=== PATIENT | male | born 1970 | race Caucasian/White ===

== ENCOUNTER → 2019-06-28 10:47 | Outpatient (CLI) | payer OTHER, SELFPAY ==
[2019-06-28 10:26] VITALS: BMI 28.2
--- NOTE | 2019-06-28 10:48 | RAD_ITS ---
STUDY: X-RAY CHEST REASON FOR EXAM: Male, 48 years old. COUGH, CONGESTION X ONE MONTH TECHNIQUE: PA and lateral views of the chest. COMPARISON: None. FINDINGS: The lungs are clear and expanded. There is no demonstrated pleural abnormality. Normal size heart. Normal mediastinum and cem. Normal visualized pulmonary arteries. Normal visualized aortic arch and descending thoracic aorta. Normal visualized thoracic spine. Normal visualized ribs, clavicles, and shoulders. There is no demonstrated abnormality of the visualized soft tissue structures of the upper abdomen. RAD/Chest PA and Lateral IMPRESSION: Normal x-ray examination of the chest. Electronically Signed: Eric Peñaloza MD at 11:11 EST Tel , Service support ,
== END ==
PROVIDERS: Family Provider Family Medicine; PCP Family Medicine; Referring Provider Physician Assistant; Visit Provider Physician Assistant
DX: R05 Cough (principal)
CPT/HCPCS: 71046

== ENCOUNTER → 2019-08-08 10:38 | Outpatient (CLI) | payer OTHER, SELFPAY ==
[2019-06-28 13:04] VITALS: BMI 28.2
[2019-08-13 11:50] LABS: Cat Hair / Dander,Stand 5.29 kU/L (Class IV)
== END ==
PROVIDERS: PCP Family Medicine; Referring Provider Pediatrics; Visit Provider Pediatrics
DX: L50.9 Urticaria, unspecified (principal)
CPT/HCPCS: 36415; 86003

== ENCOUNTER 2022-06-14 22:14 | Observation (INO) | payer OTHER, SELFPAY ==
[2022-06-14 22:16] VITALS: BP 116/112; PULSE 88; RESP 16; TEMP 36.8; O2SAT 98; BMI 25.7
[2022-06-14 22:19] VITALS: BP 167/112; PULSE 88; RESP 16; TEMP 36.8; O2SAT 98
--- NOTE | 2022-06-14 22:48 | CT_ITS ---
EXAM: CT brain without contrast HISTORY: confusion TECHNIQUE: No intravenous contrast. A radiation dose optimization technique was used for this scan. COMPARISON: None. LIMITATIONS: None. BRAIN: Normal ellsworth/white matter differentiation. VENTRICLES: No hydrocephalus. EXTRA-AXIAL SPACES: No acute hemorrhage. CALVARIUM/SKULL BASE: No acute fracture. FACE/SINUSES: Mucosal thickening and possible fluid in the maxillary and ethmoid sinuses bilaterally. SOFT TISSUES: Normal. OTHER: None. CONCLUSION: No acute intracranial abnormality. Paranasal sinus disease. Electronically Signed: Kye Fontanez MD at 23:[address] EST , CT/Brain/Head without Contrast IMPRESSION: undefined
--- NOTE | 2022-06-14 22:48 | EKG12_ITS ---
Test Reason : CONFUSION Blood Pressure : / mmHG Vent. Rate : 082 BPM Atrial Rate : 082 BPM P-R Int : 196 ms QRS Dur : 100 ms QT Int : 382 ms P-R-T Axes : 046 -14 035 degrees QTc Int : 446 ms Normal sinus rhythm Septal infarct , age undetermined Abnormal ECG Confirmed by DEMOND MIXON, ANNIE ([id number]), communications editor JUSTIN FLORES ([id number]) on 06/16/2022 11:54:35 AM Referred By: Confirmed By:ANNIE LAGOS MD
--- NOTE | 2022-06-14 22:49 | EDS_ITS ---
HPI History of Present Illness Chief Complaint: Confusion Informant: patient and family Onset/Context/Timing Onset: Today (noticed) Context: - (upon waking up from sleeping this evening, sev hrs ago) Timing: Continuous Quality: disoriented Current Severity: Mild Maximum Severity: Severe Worsened by: nothing Relieved by: nothing in particular Narrative Narrative: Patient has been ill for the past week or 8/9 days, he has had cough, malaise, subjective fevers and chills, sore throat, myalgias. He tested positive for COVID 3-4 days ago. He has been going to work all week but just feeling tired. He has been sleeping all weekend, today is Tuesday. came home and woke him up to try to encourage him to eat and drink since he has been sleeping all day and he was confused upon waking up. The last time she found him normal was about 3 days ago because he has been sleeping that much over the weekend. He states he has had a headache that has been fairly severe for the last week, right now it is occipital. states that he did not know her name, the year, other basic questions that he should know. He seems a little better now but still not normal and he admits that he feels a little disoriented. He did have some vaccination injections against COVID in the past. 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 He takes no antiplatelet or anticoagulant medications ever since then. The surgery was not recent. He takes medication for high blood pressure, hyperlipidemia, seasonal allergies, gout. The last time he had a prescription for analgesics was 2 and half years ago for gout. He does not take them although he the brought a bottle of Percocet #6 tablets. There are still some there and it was prescribed early 2019. also notes that prior to getting ill with the current illness, about 2 weeks or more ago, he fell out of bed, and was acting unusual, but then started acting normal after that until he was sick. [facility] Medical History (Updated 06/14/22 @ 23:[address] Jair Fuller MD) Gout Hay fever Hyperlipidemia Hypertension Patent foramen ovale Home Medications amlodipine 2.5 mg-atorvastatin 10 mg tablet 1 tab PO DAILY 06/18/18 [History Last Taken Unknown] hydrochlorothiazide 12.5 mg capsule 12.5 mg PO DAILY 06/18/18 [History Last Taken Unknown] simvastatin 5 mg tablet 20 mg PO QHS 06/18/18 [History Last Taken Unknown] albuterol sulfate 90 mcg/actuation aerosol inhaler 1 puff inhalation Q6H PRN shortness of breath or wheezing #6.7 grams 06/28/19 [Rx Last Taken Unknown] allopurinol 100 mg tablet 100 mg PO DAILY 06/14/22 [History Last Taken Unknown] lansoprazole 15 mg capsule,delayed release 15 mg PO DAILY 06/14/22 [History Last Taken Unknown] montelukast 10 mg tablet 10 mg PO QHS 06/14/22 [History Last Taken Unknown] oxycodone-acetaminophen 5 mg-325 mg tablet (Percocet) 1 tab PO Q6H PRN Pain 06/14/22 [History Last Taken Unknown] Allergy/AdvReac Type Severity Reaction Status Date / Time lisinopril Allergy Mild LIGHT Verified 06/23/21 07:06 HEADED, FLUSHING, HIVES Family History Other Cancer Heart disease Hypertension Surgical History History of sinus surgery PATENT FORAMEN OVALE CLOSURE WITH PATCH Social History Smoking Status: Never smoker alcohol intake: current ROS ROS ED Constitutional Constitutional ED: Reports body ache(s), chills, fatigue, fever(s), malaise and subjective Eyes Eyes: Denies blurry vision, change in vision or diplopia ENT ENT ED: Reports sore throat; Denies ear pain or rhinorrhea Cardiovascular Cardiovascular: Denies chest pain or palpitations Respiratory/Chest Respiratory/Chest: Reports cough; Denies dyspnea Gastrointestinal Gastrointestinal: Denies abdominal pain, diarrhea, nausea or vomiting Genitourinary Genitourinary ED: Denies dysuria or hematuria Musculoskeletal Musculoskeletal: Denies back pain or neck pain Integumentary Denies abscess or rash Neurologic Neurologic: Reports as per HPI, confusion and headache(s); Denies abnormal gait, paresthesias or weakness Psychiatric Psychiatric: Denies anxiety or suicidal thoughts Hematologic/Lymphatic Hematologic/Lymphatic: Denies easy bleeding or easy bruising EXAM Physical Exam Const Vital Signs: 06/14/22 22:16 06/14/22 22:19 Temperature 98.2 F 98.2 F Temperature Source Temporal Temporal Pulse Rate 88 88 Respiratory Rate 16 16 Blood Pressure 116/112 H 167/112 H Blood Pressure Mean 113 130 Pulse Ox 98 98 Oxygen Delivery Method Room Air Room Air Positive well nourished and well developed General Appearance ED: well developed and NAD HEENT Reports moist mucous membranes normocephalic and atraumatic Mouth ED: Yes oral and palatal mucosa normal Mouth: oral and palatal mucosa normal Throat: posterior oropharynx normal Eyes PERRL and EOMs intact bilaterally Neck full ROM, no lymphadenopathy and supple Resp normal respiratory effort and clear to auscultation bilaterally Cardio regular rate, regular rhythm and no murmurs GI non-tender and non-distended Auscultation: normoactive bowel sounds Palpation: soft Back/Spine no CVA tenderness General Back: other FROM Extremity normal to inspection General Extremety ED: Negative for edema, pulses abnormal or tenderness General Extremity: Negative for edema or pulses abnormal Neuro CN's II-XII intact bilaterally and no sensory deficits noted Neuro Narrative: Orientation slightly impaired; thinks it is 2022 although it is June 2022; is oriented to person, building, city, state, and the president including the fact that I voted for him. states this is drastically improved compared with earlier at home. Normal jygppf-[id number] and [id number] bilaterally. Negative Romberg. Normal gait. 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 EKG was normal, CT of the head is negative for anything acute, and his labs significant only for mild hypokalemia. In the meantime while working him up, he was given IV fluids. He has a history of a PFO that was repaired, he is not on any antiplatelet or anticoagulants. No stroke team was called nor did I perform a CTA since it would not make a difference tonight since he was last seen well 3 days ago. This is not typical COVID-19 pathology, and I do not suspect that the hypokalemia explains all of this. states he was slurring his speech when he first woke up and much different than he has now, but he is still not back to normal. I think patient would benefit from further work-up including MRI of the brain in order to rule out ischemic events given his history, and given the fact that is not available emergently at this time plan is for admission to inpatient observation. Lab Data Attestation: I reviewed the patient's lab results. Labs: Laboratory Results - last 24 hr 06/14/22 06/14/22 06/14/22 22:54 22:54 22:59 WBC 6.8 RBC 4.67 Hgb 14.2 Hct 41.7 MCV 89.3 MCH 30.4 MCHC 34.1 RDW Std Deviation 42.7 RDW Coeff of Jean 13.1 Plt Count 282 MPV 10.5 Immature Gran % (Auto) 1.300 H Neut % (Auto) 54.9 Lymph % (Auto) 32.6 [place] % (Auto) 9.7 Eos % (Auto) 0.9 Baso % (Auto) 0.6 Absolute Neuts (auto) 3.7 Absolute Lymphs (auto) 2.21 Nucleated RBC % 0 Sodium 143 Potassium 3.2 L Chloride 109 H Carbon Dioxide 28.0 Anion Gap 6 BUN 13 Creatinine 0.73 Estim Creat Clear Calc 138.34 Est GFR (MDRD) Af Amer 146 Est GFR (MDRD) Non-Af 121 BUN/Creatinine Ratio 17.7 Glucose 119 H Calcium 8.3 L Total Bilirubin 0.30 AST 24 ALT 31 Alkaline Phosphatase 110 Troponin I High Sens 6 Total Protein 7.6 Albumin 3.6 Globulin 4.0 Albumin/Globulin Ratio 0.9 POC Glucose 108 H Radiography Chest X-Ray - ED: 1 View, Read by ED Physician and No Acute Disease Diagnostic Testing: Clinical Impression(s) from Imaging Studies Brain CT 06/14/22 22:48 IMPRESSION: undefined Rhythm Strip Rhythm Strip: Sinus Rhythm Rate: 80 Ectopy: None EKG Initial EKG: Attestation: I personally reviewed and interpreted this EKG as follows: Interpretation: Sinus Rhythm and No Acute Injury Pattern Discharge Plan Triage Chief Complaint: Confusion ED Provider: Jair Fuller Dx/Rx/DC Orders Clinical Impression: Encephalopathy acute, COVID-19, Hypokalemia Prescriptions: No Action simvastatin 5 mg tablet 20 mg PO QHS hydrochlorothiazide 12.5 mg capsule 12.5 mg PO DAILY amlodipine 2.5 mg-atorvastatin 10 mg tablet 5 mg tablet 1 tab PO DAILY albuterol sulfate 90 mcg/actuation HFA aerosol inhaler 1 puff INHALATION Q6H PRN (Reason: shortness of breath or wheezing) Qty: 6.7 0RF allopurinol 100 mg tablet 100 mg PO DAILY oxycodone-acetaminophen [Percocet] 5-325 mg Tablet 1 tab PO Q6H PRN (Reason: Pain) lansoprazole 15 mg Capsule,Delayed Release(Dr/Ec) 15 mg PO DAILY montelukast 10 mg tablet 10 mg PO QHS Label Comments: TAKE 1 TABLET BY MOUTH ATTBEDTIME Primary Care Provider: Salazar Belcher Referrals: Salazar Belcher MD [Primary Care Provider] - Disposition Disposition: Acute Care Hospital
[2022-06-14] MEDS: 0.9% Normal Saline 1,000 ML 999 ML IV (22:59)
[2022-06-14 23:01] LABS: Absolute Lymphocyte Count 2.21 X10^3/uL (0.83-4.51); Absolute Neutrophil Count 3.7 X10^3/uL (2.0-7.7); Basophil# 0.04 X10^3/uL; Basophil% 0.6 % (0-1); Eosinophil# 0.06 X10^3/uL; Eosinophils% 0.9 % (0-5); Hematocrit 41.7 % (40-54); Hemoglobin 14.2 g/dL (13.0-16.5); Lymphocyte # 2.21 X10^3/ul (0.83-4.51); Lymphocyte % 32.6 % (19-41); Mean Corp Hgb Conc 34.1 g/dL (32-36); Mean Corpuscular Hgb 30.4 pg (27.0-32.0); Mean Corpuscular Volume 89.3 fL (80-94); Mean Platelet Vol. 10.5 fl (6.2-12.0); Monocyte# 0.66 X10^3/uL; Monocyte% 9.7 % (0-10); NRBC Flagged by Analyzer 0 % (0-5); Neutrophil # 3.71 X10^3/uL (2.7-7.7); Neutrophil % 54.9 % (47-70); Platelet Count 282 K/mm3 (150-450); RBC Distribution Width CV 13.1 % (11.6-14.6); RBC Distribution Width SD 42.7 fl (35.1-43.9); Red Blood Count 4.67 M/mm3 (4.6-6.2); White Blood Count 6.8 K/mm3 (4.4-11.0)
--- NOTE | 2022-06-14 23:13 | RAD_ITS ---
INDICATION: confusion EXAMINATION: Frontal view of the chest COMPARISON: Chest x-ray June 28, 2019. FINDINGS: Frontal view of the chest was obtained. The cardiac silhouette is not enlarged. No confluent airspace disease. No pneumothorax. RAD/Chest 1 View (Portable) IMPRESSION: No acute pulmonary disease. Electronically Signed: Kye Fontanez MD at 0:00 EST ,
[2022-06-14 23:17] LABS: ALB/GLOB Ratio 0.9 RATIO (0.9-2.4); AST(SGOT) 24 U/L (15-37); Alanine Aminotransfer ALT/SGPT 31 U/L (16-61); Albumin, Serum 3.6 g/dL (3.2-5.0); Alkaline Phosphatase 110 U/L (45-117); Anion Gap 6 (5-15); BUN 13 mg/dL (7-18); BUN/Creat Ratio 17.7 RATIO (10-20); Calcium,Total 8.3 mg/dL (8.5-10.1); Chloride 109 mmol/L (98-107); Creatinine, Serum 0.73 mg/dL (0.70-1.30); EST Glomerular Filtration Rate 121 mL/min (>60); Est Glom Filt Rate - Afr Amer 146 mL/min (>60); Estimated Creatinine Clearance 138.34 ml/min; Glucose 119 mg/dL (74-106); Potassium 3.2 mmol/L (3.5-5.1); Protein, Total 7.6 g/dL (6.4-8.2); Sodium Level 143 mmol/L (136-145); Troponin-I HS 6 pg/mL (3.0-78.0)
[2022-06-14 23:21] LABS: Bedside Glucose 108 mg/dL (74-106)
[2022-06-15] VITALS (19 sets, daily range): BP systolic 129–161; BP diastolic 84–111; PULSE 64–99; RESP 12–18; TEMP 36.4–37; O2SAT 95–100; BMI 25.1
[2022-06-15 00:06] LABS: Bacteria 0 SEEN /hpf (None Seen); Mucous, Urine 0 SEEN /hpf (<or=2+); Red Blood Cells-Urine 0 SEEN /hpf (0-5); Squamous Epithelial Cells - UA 0 SEEN /hpf (0-5); White Blood Cells 0 SEEN /hpf (0-5)
[2022-06-15] MEDS: Potassium Chloride 10mEq/100mL 10 MEQ/100 ML IV.SOLN. 100 MEQ IV BOLUS (00:06)
[2022-06-15 00:07] LABS: Color, Urine Straw (Yellow); Glucose, Dipstick Normal (Normal); Ketone-Dipstick Negative (Negative); Leukocyte Esterase-Dipstick Negative /ul (Negative); Nitrite-Dipstick Negative (Negative); Occult Blood-Urine Negative /ul (Negative); Protein-Dipstick Negative (Negative); Urine Bilirubin Dipstick Negative (Negative); Urine Clarity Clear (Clear); Urine Urobilinogen Normal (Normal)
--- NOTE | 2022-06-15 02:47 | HP.PCM_ITS ---
HPI - General General Date of Admission: 06/15/22 Date of Service: 06/15/22 Chief Complaint: Mental status change HPI Narrative INDRA TADEO, is a 51 M who presents to the emergency room with chief complaint of mental status change. Patient has significant past medical history of COVID 19 virus diagnosed approximately 4 days ago by testing however has had symptoms for approximately 6 days. Patient has spent the weekend essentially sleeping with a complaint of headache mostly in the occipital area of his head. He admits that today he did not take his blood pressure or routine medications. Approximately 9 PM this evening his woke him up and he was unable to identify what year it was saying it was 2022, he looked at his watch which said 9:00 however he told his it was 7:00 and he was quite agitated. He remembers the nurse asking him his Social Security number when he arrived here and birthdate but was unable to get the words out to answer her correctly. He was quite frustrated by this. By the time of my evaluation this mental confusion had cleared up and he was able to answer my questions clearly. He sti ll maintains a headache but his blood pressure is improved from his initial blood pressure 160/100 upon arrival to 140/80. CT scan head is unremarkable for acute changes and blood work is unremarkable as well. Patient will be admitted for observation and an MRI and MRA of brain and cervical spine will be done in the a.m. [facility] Medical History (Updated 06/14/22 @ 23:[address] Jair Fuller MD) Gout Hay fever Hyperlipidemia Hypertension Patent foramen ovale Home Medications amlodipine 2.5 mg-atorvastatin 10 mg tablet 1 tab PO DAILY 06/18/18 [History Last Taken Unknown] hydrochlorothiazide 12.5 mg capsule 12.5 mg PO DAILY 06/18/18 [History Last Taken Unknown] simvastatin 5 mg tablet 20 mg PO QHS 06/18/18 [History Last Taken Unknown] albuterol sulfate 90 mcg/actuation aerosol inhaler 1 puff inhalation Q6H PRN shortness of breath or wheezing #6.7 grams 06/28/19 [Rx Last Taken Unknown] allopurinol 100 mg tablet 100 mg PO DAILY 06/14/22 [History Last Taken Unknown] lansoprazole 15 mg capsule,delayed release 15 mg PO DAILY 06/14/22 [History Last Taken Unknown] montelukast 10 mg tablet 10 mg PO QHS 06/14/22 [History Last Taken Unknown] oxycodone-acetaminophen 5 mg-325 mg tablet (Percocet) 1 tab PO Q6H PRN Pain 06/14/22 [History Last Taken Unknown] Allergy/AdvReac Type Severity Reaction Status Date / Time lisinopril Allergy Mild LIGHT Verified 06/23/21 07:06 HEADED, FLUSHING, HIVES Family History Other Cancer Heart disease Hypertension Surgical History History of sinus surgery PATENT FORAMEN OVALE CLOSURE WITH PATCH Social History Smoking Status: Never smoker alcohol intake: current ROS Constitutional Constitutional: Reports anorexia, fever(s), malaise and weakness Eyes Eyes: Denies change in vision ENT HEENT: Reports headache(s) and sore throat; Denies abnormal hearing Cardiovascular Cardiovascular: Denies chest pain Respiratory/Chest Respiratory/Chest: Reports cough; Denies hemoptysis Gastrointestinal Gastrointestinal: Denies abdominal pain Genitourinary Genitourinary: Denies dysuria Musculoskeletal Musculoskeletal: Denies back pain Integumentary Integumentary: Denies dry skin Neurologic Neurologic: Reports abnormal speech and confusion; Denies focal weakness, seizures or tingling Psychiatric Psychiatric: Denies anxiety Vital Signs Vital Signs Vital Signs: 06/14/22 22:16 06/14/22 22:19 06/15/22 00:00 Temperature 98.2 F 98.2 F 98.6 F Temperature Source Temporal Temporal Temporal Pulse Rate 88 88 77 Respiratory Rate 16 16 13 Blood Pressure 116/112 H 167/112 H 161/104 H Blood Pressure Mean 113 130 123 Pulse Ox 98 98 97 Oxygen Delivery Method Room Air Room Air Room Air 06/15/22 00:18 06/15/22 01:56 06/15/22 01:00 Temperature 98.6 F 98.6 F Temperature Source Temporal Temporal Pulse Rate 78 79 79 Respiratory Rate 13 12 12 Blood Pressure 161/104 H 142/99 H 142/99 H Blood Pressure Mean 123 113 113 Pulse Ox 96 95 95 Oxygen Delivery Method Room Air Room Air Room Air 06/15/22 02:25 Temperature Temperature Source Pulse Rate 78 Respiratory Rate 16 Blood Pressure 140/92 H Blood Pressure Mean 108 Pulse Ox 95 Oxygen Delivery Method Room Air Weight Weight: 195 lb 8 oz Body Mass Index (BMI) 25.7 Physical Exam Const alert and oriented x3 Constitutional Narrative: at time of my eval HEENT normocephalic and head/scalp atraumatic Eyes PERRL and EOMs intact bilaterally Neck no lymphadenopathy Lymph Lymphatic: no lymphadenopathy noted Resp normal respiratory effort and normal air movement Resp Narrative: coarse bilat Cardio regular rate, regular rhythm, S1 normal heart sound, S2 normal heart sound and no murmurs GI normal to inspection, nondistended, normoactive bowel sounds Extremity normal capillary refill Skin General Skin Exam: no breakdown Neuro CN's II-XII intact bilaterally Coordination / Balance: [id number] test normal Speech: speech normal Motor Exam: strength 5/5 throughout Psych thought process normal and affect normal Appearance: appropriate Results Lab / Micro Data Result Diagrams: 06/14/22 22:54 06/14/22 22:54 Labs: Laboratory Results - last 24 hr 06/14/22 22:54: WBC 6.8, RBC 4.67, Hgb 14.2, Hct 41.7, MCV 89.3, MCH 30.4, MCHC 34.1, RDW Std Deviation 42.7, RDW Coeff of Jean 13.1, Plt Count 282, MPV 10.5, Immature Gran % (Auto) 1.300 H, Neut % (Auto) 54.9, Lymph % (Auto) 32.6, [place] % (Auto) 9.7, Eos % (Auto) 0.9, Baso % (Auto) 0.6, Absolute Neuts (auto) 3.7, A bsolute Lymphs (auto) 2.21, Nucleated RBC % 0 06/14/22 22:54: Sodium 143, Potassium 3.2 L, Chloride 109 H, Carbon Dioxide 28.0, Anion Gap 6, BUN 13, Creatinine 0.73, Estim Creat Clear Calc 138.34, Est GFR (MDRD) Af Amer 146, Est GFR (MDRD) Non-Af 121, BUN/Creatinine Ratio 17.7, Glucose 119 H, Calcium 8.3 L, Total Bilirubin 0.30, AST 24, ALT 31, Alkaline Phosphatase 110, Troponin I High Sens 6, Total Protein 7.6, Albumin 3.6, Globulin 4.0, Albumin/Globulin Ratio 0.9 06/14/22 22:59: POC Glucose 108 H 06/15/22 00:02: Urine Color Straw, Urine Clarity Clear, Urine pH 7.0, Ur Specific [place] 1.010, Urine Protein Negative, Urine Glucose (UA) Normal, Urine Ketones Negative, Urine Occult Blood Negative, Urine Nitrite Negative, Urine Bilirubin Negative, Urine Urobilinogen Normal, Ur Leukocyte Esterase Negative, Urine RBC 0 SEEN, Urine WBC 0 SEEN, Ur Squamous Epith Cells 0 SEEN, Urine Bacteria 0 SEEN, Urine Mucus 0 SEEN Rhythm Strip Rhythm Strip: Sinus Rhythm Rate: 80 Ectopy: None Radiology Impression Brain CT 06/14/22 22:48 IMPRESSION: undefined Chest X-Ray 06/14/22 23:13 IMPRESSION: No acute pulmonary disease. Electronically Signed: Kye Fontanez MD at 0:00 EST Reading Location ID and State: [address] [place] [address] Tel , Service support , Assessment & Plan Assessment/Plan (1) Encephalopathy acute: (2) COVID-19: (3) Hypokalemia: PLAN: Plan 1 acute mental status change possibly secondary to viral encephalopathy, hypertensive urgency or TIA?admit patient to progressive care unit initiate neurochecks every 4 hours, order MRI MRA of brain and cervical spine for the a.m. We will add aspirin daily and recommend he continue this following discharge 2. COVID-19?maintain droplet isolation at this point patient is recovering we will add oxygen as needed otherwise no further intervention at this time 3. Hypokalemia?replace potassium as needed repeat BMP in the morning 4. DVT prophylaxis?low molecular weight heparin Charges/Coding Visit Charges OBSV E&M: 46656 Initial observation care L2
--- NOTE | 2022-06-15 03:00 | MRI_ITS ---
STUDY: MRA OF THE HEAD WITHOUT CONTRAST REASON FOR EXAM: Male, 51 years old. TIA. TECHNIQUE: 3-D [id number] (TOF) imaging was performed with MIPs. The study was performed unenhanced. COMPARISON: None. FINDINGS: Normal bilateral petrous carotid arteries. Normal right cavernous carotid artery with a normal supraclinoid bifurcation. Normal left cavernous carotid artery with a normal supraclinoid bifurcation. Normal right A1 segment of the anterior cerebral artery. Normal left A1 segment of the anterior cerebral artery. Normal intact anterior communicating artery (ACOM). Normal bilateral A2 segments of the anterior cerebral arteries. Normal right M1 and M2 segments of the middle cerebral arteries, with a normal M1 bifurcation. Normal left M1 and M2 segments of the middle cerebral arteries, with a normal M1 bifurcation. Normal right posterior communicating artery (PCOM). Normal left posterior communicating artery (PCOM). Normal bilateral codominant vertebral arteries. Normal basilar artery with a normal basilar bifurcation. The visualized bilateral superior cerebellar (SCA) arteries are normal. Normal bilateral P1, P2 and visualized P3 segments of the posterior cerebral arteries. There is no demonstrated aneurysm of the [place]. There is no major vessel occlusion or hemodynamically significant stenosis. There is no demonstrated abnormality of the visualized brain. MRI/MRA Head ONLY without Contrast IMPRESSION: Normal MRA of the head Electronically Signed: Quinn Adams MD at 13:22 EST ,
--- NOTE | 2022-06-15 03:00 | MRI_ITS ---
STUDY: MRA NECK WITHOUT CONTRAST REASON FOR EXAM: Male, 51 years old. TIA. TECHNIQUE: Source images were obtained, MIPs were performed. The study was performed unenhanced. COMPARISON: None. FINDINGS: RIGHT CAROTID ARTERIES: Normal right common carotid artery (CCA). Normal right carotid bulb. Normal origin of the right internal carotid (ICA) artery without a hemodynamically significant stenosis. Normal visualized cervical portion of the right internal carotid artery. Normal origin of the right external carotid artery (ECA). LEFT CAROTID ARTERIES: Normal left common carotid artery (CCA). Normal left carotid bulb. Normal origin of the left internal carotid (ICA) artery without a hemodynamically significant stenosis. Normal visualized cervical portion of the left internal carotid artery. Normal origin of the left external carotid artery (ECA). VERTEBRAL ARTERIES: Normal antegrade flow within the bilateral codominant vertebral artery without a hemodynamically significant stenosis. MRI/MRA Neck without Contrast IMPRESSION: Normal bilateral cervical carotid and vertebral arteries. Electronically Signed: Quinn Adams MD at 13:24 EST ,
--- NOTE | 2022-06-15 03:00 | MRI_ITS ---
EXAM: MR HEAD WITHOUT INTRAVENOUS CONTRAST CLINICAL INDICATION: TIA. TECHNIQUE: Multiplanar and multisequence MR images of the brain were obtained without intravenous contrast. This report was created using [employer] report generation technology. COMPARISON: None. FINDINGS: BRAIN AND EXTRA-AXIAL SPACES: No diffusion restriction to suspect acute or subacute ischemic infarct. No focal signal abnormalities throughout the brain parenchyma in all pulse sequences. No intra- or extra-axial hemorrhage. No intracranial mass or mass effect. Posterior fossa structures are unremarkable. Ventricles are appropriate for age. No hydrocephalus. Basal cisterns are patent. SELLA: Unremarkable. Normal sella turcica, pituitary gland, infundibular stalk, optic chiasm and hypothalamus. AUDITORY SYSTEM: Unremarkable. The internal auditory canals are patent. BONES/JOINTS: Unremarkable. No discrete lytic or blastic abnormalities. SINUSES: Pronounced mucosal thickening of the [place] sinuses and ethmoid sinuses. Mild mucosal thickening of the left frontal sinus. MASTOID AIR CELLS: Unremarkable as visualized. Clear. ORBITS: Unremarkable as visualized. Both globes, extraocular muscles, optic nerves and retrobulbar fat appear unremarkable. VASCULATURE: Unremarkable as visualized. Normal flow voids in the major intracranial circulation. MRI/Brain without Contrast IMPRESSION: 1. Normal MRI brain without contrast. 2. Pronounced chronic sinusitis in the maxillary sinuses and ethmoid sinuses. Electronically Signed: Quinn Adams MD at 13:26 EST ,
[2022-06-15] MEDS: 0.9% Saline Lock 10 ML Syringe IV ×2 (05:25→10:37)
[2022-06-15 05:55] LABS: Absolute Lymphocyte Count 1.84 X10^3/uL (0.83-4.51); Absolute Neutrophil Count 2.5 X10^3/uL (2.0-7.7); Basophil# 0.03 X10^3/uL; Basophil% 0.6 % (0-1); Eosinophil# 0.06 X10^3/uL; Eosinophils% 1.2 % (0-5); Hematocrit 37.5 % (40-54); Hemoglobin 13.1 g/dL (13.0-16.5); Lymphocyte # 1.84 X10^3/ul (0.83-4.51); Lymphocyte % 37.1 % (19-41); Mean Corp Hgb Conc 34.9 g/dL (32-36); Mean Corpuscular Hgb 31.3 pg (27.0-32.0); Mean Corpuscular Volume 89.7 fL (80-94); Monocyte# 0.48 X10^3/uL; Monocyte% 9.7 % (0-10); NRBC Flagged by Analyzer 0 % (0-5); Neutrophil % 50.4 % (47-70); Platelet Count 240 K/mm3 (150-450); RBC Distribution Width CV 13.2 % (11.6-14.6); RBC Distribution Width SD 43.7 fl (35.1-43.9); Red Blood Count 4.18 M/mm3 (4.6-6.2)
[2022-06-15 06:29] LABS: Anion Gap 7 (5-15); BUN 9 mg/dL (7-18); BUN/Creat Ratio 14.8 RATIO (10-20); Calcium,Total 7.8 mg/dL (8.5-10.1); Chloride 108 mmol/L (98-107); Cholesterol 179 mg/dL (200); Creatinine, Serum 0.61 mg/dL (0.70-1.30); EST Glomerular Filtration Rate 149 mL/min (>60); Est Glom Filt Rate - Afr Amer 181 mL/min (>60); Estimated Creatinine Clearance 165.55 ml/min; Glucose 97 mg/dL (74-106); High Density Lipoprotein 58 mg/dL; Potassium 3.1 mmol/L (3.5-5.1); Sodium Level 141 mmol/L (136-145); Triglycerides 234 mg/dL; Very Low Density Lipoprotein 47 mg/dL (5-40)
[2022-06-15] MEDS: Acetaminophen 325 MG Tablet 650 MG PO ×3 (10:17→22:13)
[2022-06-15] MEDS: hydroCHLOROthiazide 12.5mg 12.5 MG PO (10:29)
[2022-06-15] MEDS: Allopurinol 100 MG Tablet PO (10:29)
[2022-06-15] MEDS: Aspirin 325 MG Tablet PO (10:29)
[2022-06-15] MEDS: Ondansetron 4 MG/2 ML Vial IV (10:29)
[2022-06-15] MEDS: Pantoprazole Sodium 20 MG Tablet PO (10:29)
[2022-06-15] MEDS: amLODIPine 5 MG Tablet PO ×2 (10:30→17:02)
[2022-06-15] MEDS: Enoxaparin 40 MG/0.4 ML Syringe SC (10:30)
--- NOTE | 2022-06-15 14:26 | CHAPLAIN ---
Type of Pastoral Visit __x_ Initial Visit ___ Follow-up Visit ___ On-call Visit ___ General Patient Visit ___ Spiritual Assessment ___ Family Conference ___ Bereavement ___ Rapid Response ___ Code Blue ___ Other (describe below) Pastoral Care Referral From _x__ Patient ___ Family ___ Nurse ___ Physician ___ Crusher [place] Mica ___ Lay Out Carpenter ___ Other (describe below) Sacrament/Intervention __x_ Active listening ___ Anointing ___ Scientologist ___ Bereavement ___ Communion ___ Miriam exploration ___ ___ Life review ___ Prayer ___ Reconciliation ___ Sacrament of Sick ___ Supportive presence ___ Wedding ___ Other (describe below) Pastoral Comments patient was able to answer the phone and talk; pt reports that he is doing okay although he needed to be in the hospital; pt had family come in today to see him which was encouraging; pt says that he should be fine and will report any needs for further support
--- NOTE | 2022-06-15 15:18 | PN.HOSP_ITS ---
Subjective Subjective Patient seen and examined. He denied any cough, chest pain, palpitations, dizziness, nausea, vomiting or diarrhea. REview of systems is otherwise negative. Objective Data Objective Data Vital Signs: Vital Signs Temp Pulse Resp BP Pulse Ox O2 Del Method 97.8 F 99 15 159/111 H 100 Room Air 06/15/22 10:21 06/15/22 15:13 06/15/22 10:21 06/15/22 10:21 06/15/22 10:21 06/15/22 10:35 Oxygen Delivery Method Room Air Weight: 190 lb 11.198 oz Body Mass Index (BMI) 25.1 Intake & Output: Intake and Output for Last 24 Hours 06/13/22 06/14/22 06/15/22 23:59 23:59 23:59 Intake Total 2151.67 / 2151.67 Balance 2151.67 / 2151.67 Lab / Micro Data Result Diagrams: 06/15/22 04:46 06/15/22 04:46 Labs: Laboratory Results - last 24 hr 06/14/22 22:54: WBC 6.8, RBC 4.67, Hgb 14.2, Hct 41.7, MCV 89.3, MCH 30.4, MCHC 34.1, RDW Std Deviation 42.7, RDW Coeff of Jean 13.1, Plt Count 282, MPV 10.5, Immature Gran % (Auto) 1.300 H, Neut % (Auto) 54.9, Lymph % (Auto) 32.6, [place] % (Auto) 9.7, Eos % (Auto) 0.9, Baso % (Auto) 0.6, Absolute Neuts (auto) 3.7, Absolute Lymphs (auto) 2.21, Nucleated RBC % 0 06/14/22 22:54: Sodium 143, Potassium 3.2 L, Chloride 109 H, Carbon Dioxide 28.0, Anion Gap 6, BUN 13, Creatinine 0.73, Estim Creat Clear Calc 138.34, Est GFR (MDRD) Af Amer 146, Est GFR (MDRD) Non-Af 121, BUN/Creatinine Ratio 17.7, Glucose 119 H, Calcium 8.3 L, Total Bilirubin 0.30, AST 24, ALT 31, Alkaline Phosphatase 110, Troponin I High Sens 6, Total Protein 7.6, Albumin 3.6, Globulin 4.0, Albumin/Globulin Ratio 0.9 06/14/22 22:59: POC Glucose 108 H 06/15/22 00:02: Urine Color Straw, Urine Clarity Clear, Urine pH 7.0, Ur Specific [place] 1.010, Urine Protein Negative, Urine Glucose (UA) Normal, Urine Ketones Negative, Urine Occult Blood Negative, Urine Nitrite Negative, Urine Bilirubin Negative, Urine Urobilinogen Normal, Ur Leukocyte Esterase Negative, Urine RBC 0 SEEN, Urine WBC 0 SEEN, Ur Squamous Epith Cells 0 SEEN, Urine Bacteria 0 SEEN, Urine Mucus 0 SEEN 06/15/22 04:46: WBC 5.0, RBC 4.18 L, Hgb 13.1, Hct 37.5 L, MCV 89.7, MCH 31.3, MCHC 34.9, RDW Std Deviation 43.7, RDW Coeff of Jean 13.2, Plt Count 240, MPV 11.0, Immature Gran % (Auto) 1.000 H, Neut % (Auto) 50.4, Lymph % (Auto) 37.1, [place] % (Auto) 9.7, Eos % (Auto) 1.2, Baso % (Auto) 0.6, Absolute Neuts (auto) 2.5, Absolute Lymphs (auto) 1.84, Nucleated RBC % 0 06/15/22 04:46: Sodium 141, Potassium 3.1 L, Chloride 108 H, Carbon Dioxide 26.0, Anion Gap 7, BUN 9, Creatinine 0.61 L, Estim Creat Clear Calc 165.55, Est GFR (MDRD) Af Amer 181, Est GFR (MDRD) Non-Af 149, BUN/Creatinine Ratio 14.8, Glucose 97, Calcium 7.8 L, Triglycerides 234 H, Cholesterol 179, LDL Cholesterol 74, VLDL Cholesterol 47 H, HDL Cholesterol 58 Radiography Diagnostic Testing: Radiology Impression Brain CT 06/14/22 22:48 IMPRESSION: undefined Chest X-Ray 06/14/22 23:13 IMPRESSION: No acute pulmonary disease. Electronically Signed: Kye Fontanez MD at 0:00 EST , Brain MRI 06/15/22 03:00 IMPRESSION: 1. Normal MRI brain without contrast. 2. Pronounced chronic sinusitis in the maxillary sinuses and ethmoid sinuses. Electronically Signed: Quinn Adams MD at 13:26 EST , Head MRA 06/15/22 03:00 IMPRESSION: Normal MRA of the head Electronically Signed: Quinn Adams MD at 13:22 EST , Neck MRA 06/15/22 03:00 IMPRESSION: Normal bilateral cervical carotid and vertebral arteries. Electronically Signed: Quinn Adams MD at 13:24 EST , Rhythm Strip Rhythm Strip: Sinus Rhythm Rate: 80 Ectopy: None Physical Exam Const alert, oriented x3 and no apparent distress HEENT head/scalp atraumatic, moist oral mucous membranes and oropharynx normal Head and Scalp: normocephalic Mouth: oral and palatal mucosa normal Eyes PERRL, EOMs intact bilaterally and conjunctivae normal Neck no lymphadenopathy, supple and no JVD Resp normal respiratory effort, no retractions, no use of accessory muscles and clear to auscultation bilaterally Cardio regular rate, regular rhythm, S1 normal heart sound, S2 normal heart sound and no murmurs GI normal to inspection, nondistended, normoactive bowel sounds, soft to palpation, non-tender and non-distended Extremity normal to inspection, full ROM and no clubbing, cyanosis or edema Neuro oriented x3, CN's II-XII intact bilaterally, moves all extremities and no focal motor deficits Sensorium / Orientation: awake and alert Motor Exam: strength 5/5 throughout Psych affect normal Assessment & Plan Assessment/Plan (1) Encephalopathy acute: (2) COVID-19: (3) Bronchitis: PLAN: Plan ##Acute metabolic encephalopathy * resolved. Patient now alert and oriented. headache has improved * MRI of brain showed no acute intracranial pathology. * MRA head and neck was also negative * PT/OT on board. Fall precautions * #COVID 19 infection * diagnosed 4 days prior to admission * on room air * to remain in isolation for 10 days since diagnosis * #Hypokalemia: potassium is 3.1 today. Will replace and trend. DVT prophylaxis: lovenox Charges/Coding Visit Charges Inpatient E&M: 72341 Subs Hosp L2
[2022-06-15] MEDS: Potassium Chloride Oral Tablet 20 MEQ 60 MEQ PO (15:54)
[2022-06-15] MEDS: Montelukast 10 MG Tablet PO (20:21)
[2022-06-15] MEDS: Atorvastatin Calcium 10 MG Tablet PO (20:21)
[2022-06-16] VITALS (8 sets, daily range): BP systolic 148–153; BP diastolic 95–98; PULSE 54–75; RESP 14–18; TEMP 35.7–36.6; O2SAT 97; BMI 25.1
[2022-06-16 09:53] LABS: Anion Gap 4 (5-15); BUN 7 mg/dL (7-18); BUN/Creat Ratio 10.2 RATIO (10-20); Calcium,Total 8.6 mg/dL (8.5-10.1); Chloride 108 mmol/L (98-107); Creatinine, Serum 0.68 mg/dL (0.70-1.30); EST Glomerular Filtration Rate 131 mL/min (>60); Est Glom Filt Rate - Afr Amer 158 mL/min (>60); Estimated Creatinine Clearance 148.51 ml/min; Glucose 119 mg/dL (74-106); Potassium 3.7 mmol/L (3.5-5.1); Sodium Level 140 mmol/L (136-145)
[2022-06-16] MEDS: Aspirin 325 MG Tablet PO (10:24)
[2022-06-16] MEDS: Acetaminophen 325 MG Tablet 650 MG PO (10:24)
[2022-06-16] MEDS: amLODIPine 10 MG Tablet PO (10:24)
[2022-06-16] MEDS: Allopurinol 100 MG Tablet PO (10:24)
[2022-06-16] MEDS: Enoxaparin 40 MG/0.4 ML Syringe SC (10:24)
[2022-06-16] MEDS: hydroCHLOROthiazide 25 MG Tablet PO (10:25)
[2022-06-16] MEDS: Pantoprazole Sodium 20 MG Tablet PO (10:25)
--- NOTE | 2022-06-16 11:59 | DS.PCM_ITS ---
Providers Date of Admission: 06/15/22 Date of Discharge: 06/16/22 Primary Care Physician: Dr. Salazar Belcher MD Reason For Visit: ACUTE MENTAL STATUS CHANGE Diagnosis Discharge Diagnosis (1) Encephalopathy acute: Status: Acute Code(s): G93.40 - Encephalopathy, unspecified (2) COVID-19: Status: Acute Code(s): U07.1 - COVID-19 (3) Bronchitis: Status: Acute Code(s): J40 - Bronchitis, not specified as acute or chronic Plan ##Acute metabolic encephalopathy * resolved. Patient now alert and oriented. headache has improved * MRI of brain showed no acute intracranial pathology. * MRA head and neck was also negative * PT/OT on board. Fall precautions * #COVID 19 infection * diagnosed 4 days prior to admission * on room air * to remain in isolation for 10 days since diagnosis * #Hypokalemia: potassium is 3.1 today. Will replace and trend. DVT prophylaxis: lovenox Medications at Discharge Home Medications simvastatin 5 mg tablet 20 mg PO QHS 06/18/18 albuterol sulfate 90 mcg/actuation aerosol inhaler 1 puff inhalation Q6H PRN shortness of breath or wheezing #6.7 grams 06/28/19 allopurinol 100 mg tablet 100 mg PO DAILY 06/14/22 lansoprazole 15 mg capsule,delayed release 15 mg PO DAILY 06/14/22 montelukast 10 mg tablet 10 mg PO QHS 06/14/22 amlodipine 10 mg tablet 10 mg PO DAILY #3 tabs 06/16/22 hydrochlorothiazide 25 mg tablet 25 mg PO DAILY #30 tabs 06/16/22 Hospital Course Operations None Procedures None Summary of Care Provided Minutes Spent on Discharge: 45 Hospital Course: Patient is a 51 y/o male with a PMH as outlined who was admitted via the ED on 06/15/2022 with a complaint of altered mental status. He had been diagnosed with COVID about 4 days prior to admission but had had symptoms for about 6 days prior to admission. He had had a headache and on the day of admission he did not take his blood pressure medications. His woke him up on the evening of admission and patient was confused thinking it was 2022. He also did not know the time he was quite agitated. His therefore brought him into the ED. At time of review by admitting doctor, his confusion had cleared up. Hips blood pressure was elevated at 160/[address] of the brain was negative for any acute intracranial pathology. He was admitted and managed for altered mental status. He had MRI of the brain done which showed no acute intracranial pathology. His confusion did not recur during admission and patient remained stable on room air. His blood pressure control was not optimized and so his blood pressure meds were increased with him being placed on amlodipine 10 mg daily and hydrochlorothiazide also increased to 25 mg daily. He was discharged home on 06/16/2022 and is to follow-up with his primary care doctor within 1 to 2 weeks. Patient seen and examined prior to discharge. He had no complaints. was by his bedside. Review of systems otherwise negative. Labs and vitals reviewed. Home medication reviewed and reconciled. Physical Exam Const alert, oriented x3 and no apparent distress General Appearance: cooperative, comfortable and well kempt Orientation / Consciousness: awake Exam Limitations: no limitations HEENT normocephalic, head/scalp atraumatic, hearing grossly normal bilaterally, moist oral mucous membranes and oropharynx normal Mouth: oral and palatal mucosa normal Eyes PERRL, EOMs intact bilaterally and conjunctivae normal Neck no lymphadenopathy, supple and no JVD Lymph Lymphatic: no lymphadenopathy noted Resp normal respiratory effort, normal air movement, no retractions, no use of accessory muscles and clear to auscultation bilaterally Resp Narrative: coarse bilat Cardio regular rate, regular rhythm, S1 normal heart sound, S2 normal heart sound and no murmurs GI normal to inspection, nondistended, normoactive bowel sounds, soft to palpation, non-tender and non-distended Extremity normal to inspection, full ROM, normal capillary refill and no clubbing, cyanosis or edema Skin no rashes or lesions noted General Skin Exam: no breakdown Neuro oriented x3, CN's II-XII intact bilaterally, moves all extremities and no focal motor deficits Sensorium / Orientation: awake and alert Coordination / Balance: [id number] test normal Speech: speech normal Motor Exam: strength 5/5 throughout Psych thought process normal and affect normal Appearance: appropriate Weight / BMI Weight Weight: 190 lb 11.198 oz Body Mass Index (BMI) 25.1 ABG / Lab / Microbiology Data Result Diagrams: 06/15/22 04:46 06/16/22 09:15 Laboratory: Laboratory Results - last 24 hr 06/16/22 09:15: Sodium 140, Potassium 3.7, Chloride 108 H, Carbon Dioxide 28.0, Anion Gap 4 L, BUN 7, Creatinine 0.68 L, Estim Creat Clear Calc 148.51, Est GFR (MDRD) Af Amer 158, Est GFR (MDRD) Non-Af 131, BUN/Creatinine Ratio 10.2, Glucose 119 H, Calcium 8.6 Radiography Diagnostic Testing: Radiology Impression Brain MRI 06/15/22 03:00 IMPRESSION: 1. Normal MRI brain without contrast. 2. Pronounced chronic sinusitis in the maxillary sinuses and ethmoid sinuses. Electronically Signed: Quinn Adams MD at 13:26 EST , Head MRA 06/15/22 03:00 IMPRESSION: Normal MRA of the head Electronically Signed: Quinn Adams MD at 13:22 EST , Neck MRA 06/15/22 03:00 IMPRESSION: Normal bilateral cervical carotid and vertebral arteries. Electronically Signed: Quinn Adams MD at 13:24 EST , D/C Instructions Discharge Diet: Low fat / Low cholesterol Discharge Activity: Return to Normal Activity Weight Bearing Status: Weight bearing as tolerated Call your doctor if you observe: Fever of 101 or Higher, Dizziness, Fainting spells, Swelling in the ankles, Chest pain and Increased palpitations (irregular heartbeat) Meaningful Use Info Meaningful Use Diagnoses (Choose all that apply): None applicable Discharge Plan Admission Admit Date/Time: 06/15/22 02:54 Primary Reason for Your Visit: altered mental status Attending Provider: Shaina Lu Primary Care Provider: Salazar Belcher Consulting Providers: Kp Rosenbaum Instructions Patient Instructions: ED Confusion Discharge Orders/Prescriptions Prescriptions: New amlodipine 10 mg Tablet 10 mg PO DAILY Qty: 3 1RF hydrochlorothiazide 25 mg tablet 25 mg PO DAILY Qty: 30 1RF Continued simvastatin 5 mg tablet 20 mg PO QHS albuterol sulfate 90 mcg/actuation HFA aerosol inhaler 1 puff INHALATION Q6H PRN (Reason: shortness of breath or wheezing) Qty: 6.7 0RF allopurinol 100 mg tablet 100 mg PO DAILY lansoprazole 15 mg Capsule,Delayed Release(Dr/Ec) 15 mg PO DAILY montelukast 10 mg tablet 10 mg PO QHS Label Comments: TAKE 1 TABLET BY MOUTH ATTBEDTIME Discontinued hydrochlorothiazide 12.5 mg capsule 12.5 mg PO DAILY amlodipine [Norvasc] 2.5 mg Tablet 5 mg PO DAILY Referrals / Follow Up: Salazar Belcher MD [Primary Care Provider] - Within 1 Week Disposition Disposition (needs filled in before D/C Order can be placed): Home, Self Care Charges/Coding Visit Charges Inpatient E&M: 69591 Disch Hosp
== END 2022-06-16 11:58 | disposition home or self-care (01) ==
LOC: ED 23:54 → PCU 06-15 03:07
PROVIDERS: Admitting Provider Family Medicine; Emergency Provider Emergency Medicine; PCP Family Medicine; Visit Provider Student in an Organized Health Care Education/Training Program
DX: U07.1 COVID-19 (principal); G93.40 Encephalopathy, unspecified; E78.5 Hyperlipidemia, unspecified; J20.9 Acute bronchitis, unspecified; I10 Essential (primary) hypertension; M10.9 Gout, unspecified; E87.6 Hypokalemia; Z79.899 Other long term (current) drug therapy; Q21.12 Patent foramen ovale
CPT/HCPCS: 36415; 70450; 70544; 70547; 70551; 71045; 80048; 80053; 80061; 81001; 82962; 84484; 85025; 93005; 94762; 96361; 96365; 96366; 96372; 96375; 99285; J7030; A4216; J2405

== ENCOUNTER → 2022-07-22 | Outpatient (CLI) | payer OTHER, SELFPAY ==
[2022-07-22 12:58] LABS: Anion Gap 4 (5-15); BUN 15 mg/dL (7-18); BUN/Creat Ratio 18.3 RATIO (10-20); Calcium,Total 9.3 mg/dL (8.5-10.1); Chloride 103 mmol/L (98-107); Creatinine, Serum 0.82 mg/dL (0.70-1.30); EST Glomerular Filtration Rate 106 mL/min (>60); Est Glom Filt Rate - Afr Amer 128 mL/min (>60); Glucose 104 mg/dL (74-106); Potassium 3.7 mmol/L (3.5-5.1); Sodium Level 138 mmol/L (136-145)
== END | disposition home or self-care (01) ==
LOC: LAB 11:38
PROVIDERS: PCP Family Medicine; Visit Provider Family Medicine
DX: I10 Essential (primary) hypertension (principal)
CPT/HCPCS: 36415; 80048

== ENCOUNTER → 2023-01-11 | Outpatient (CLI) | payer OTHER, SELFPAY ==
[2023-01-11 16:52] LABS: Absolute Lymphocyte Count 1.42 X10^3/uL (0.83-4.51); Absolute Neutrophil Count 2.9 X10^3/uL (2.0-7.7); Basophil# 0.04 X10^3/uL; Basophil% 0.8 % (0-1); Eosinophil# 0.12 X10^3/uL; Eosinophils% 2.3 % (0-5); Hematocrit 40.7 % (40-54); Hemoglobin 13.1 g/dL (13.0-16.5); Lymphocyte # 1.42 X10^3/ul (0.83-4.51); Lymphocyte % 27.3 % (19-41); Mean Corp Hgb Conc 32.2 g/dL (32-36); Mean Corpuscular Hgb 29.6 pg (27.0-32.0); Mean Corpuscular Volume 92.1 fL (80-94); Mean Platelet Vol. 11.6 fl (6.2-12.0); Monocyte% 13.4 % (0-10); NRBC Flagged by Analyzer 0 % (0-5); Neutrophil # 2.92 X10^3/uL (2.7-7.7); Platelet Count 270 K/mm3 (150-450); RBC Distribution Width CV 13.4 % (11.6-14.6); RBC Distribution Width SD 45.6 fl (35.1-43.9); Red Blood Count 4.42 M/mm3 (4.6-6.2); White Blood Count 5.2 K/mm3 (4.4-11.0)
[2023-01-11 17:20] LABS: ALB/GLOB Ratio 0.9 RATIO (0.9-2.4); AST(SGOT) 33 U/L (15-37); Alanine Aminotransfer ALT/SGPT 37 U/L (16-61); Albumin, Serum 3.7 g/dL (3.2-5.0); Alkaline Phosphatase 112 U/L (45-117); Anion Gap 7 (5-15); BUN 12 mg/dL (7-18); BUN/Creat Ratio 11.8 RATIO (10-20); Calcium,Total 8.8 mg/dL (8.5-10.1); Chloride 104 mmol/L (98-107); Creatinine, Serum 1.02 mg/dL (0.70-1.30); EST Glomerular Filtration Rate 82 mL/min (>60); Est Glom Filt Rate - Afr Amer 99 mL/min (>60); Globulin 4.1 g/dL (2.2-4.2); Glucose 97 mg/dL (74-106); Potassium 3.7 mmol/L (3.5-5.1); Protein, Total 7.8 g/dL (6.4-8.2); Sodium Level 139 mmol/L (136-145); T4 Free Direct 0.92 ng/dL (0.76-1.46); Thyroid Stim Hormone (TSH) 1.14 uIU/mL (0.358-3.74)
[2023-01-15 01:06] LABS: Lyme IgG P18 Ab Absent (.); Lyme IgG P23 Ab Absent (.); Lyme IgG P28 Ab Absent (.); Lyme IgG P30 Ab Absent (.); Lyme IgG P39 Ab Absent (.); Lyme IgG P41 Ab Present (.); Lyme IgG P45 Ab Absent (.); Lyme IgG P58 Ab Absent (.); Lyme IgG P66 Ab Absent (.); Lyme IgG P93 Ab Absent (.); Lyme IgG WB Interpretation Negative (.); Lyme IgM P23 Ab Absent (.); Lyme IgM P39 Ab Absent (.); Lyme IgM P41 Ab Absent (.); Lyme IgM WB Interpretation Negative (.)
== END | disposition home or self-care (01) ==
LOC: LAB 15:21
PROVIDERS: PCP Family Medicine; Referring Provider Family Medicine; Visit Provider Family Medicine
DX: R41.0 Disorientation, unspecified (principal); R53.83 Other fatigue
CPT/HCPCS: 36415; 80053; 84439; 84443; 85025; 86617

== ENCOUNTER → 2023-01-27 | Outpatient (CLI) | payer OTHER, SELFPAY | END | disposition home or self-care (01) | LOC: SL 20:01 | PROVIDERS: PCP Family Medicine; Referring Provider Family Medicine; Visit Provider Family Medicine | DX: R06.83 Snoring (principal); G47.10 Hypersomnia, unspecified; R41.0 Disorientation, unspecified; I10 Essential (primary) hypertension | CPT/HCPCS: 95810 ==

== ENCOUNTER → 2023-03-04 | Outpatient (CLI) | payer OTHER, SELFPAY | END | disposition home or self-care (01) | LOC: SL 20:08 | PROVIDERS: PCP Family Medicine; Referring Provider Nurse Practitioner Acute Care; Visit Provider Nurse Practitioner Acute Care | DX: G47.33 Obstructive sleep apnea (adult) (pediatric) (principal) | CPT/HCPCS: 95811 ==

== ENCOUNTER → 2023-04-20 | Outpatient (CLI) | payer OTHER, SELFPAY ==
[2023-04-20 08:38] LABS: PSA,Total - Annual Screen 6.93 ng/mL (0.00-4.00); Uric Acid 6.7 mg/dL (3.5-7.2)
[2023-04-20 08:44] LABS: Syphilis Antibodies Non-reactive
[2023-04-20 17:53] LABS: Hemoglobin A1c 5.4 % (3.8-5.6)
== END | disposition home or self-care (01) ==
LOC: LAB 07:18
PROVIDERS: PCP Family Medicine; Referring Provider Family Medicine; Visit Provider Family Medicine
DX: Z00.00 Encounter for general adult medical examination without abnormal findings (principal); M1A.9XX0 Chronic gout, unspecified, without tophus (tophi); I10 Essential (primary) hypertension; E78.2 Mixed hyperlipidemia; R41.0 Disorientation, unspecified; R53.83 Other fatigue; Z12.5 Encounter for screening for malignant neoplasm of prostate; Z13.1 Encounter for screening for diabetes mellitus
CPT/HCPCS: 36415; 83036; 84153; 84550; 86780; G0103

== ENCOUNTER → 2023-04-28 | Outpatient (CLI) | payer OTHER, SELFPAY | END | disposition home or self-care (01) | LOC: LAB 15:58 | PROVIDERS: PCP Family Medicine; Visit Provider Family Medicine | DX: R97.20 Elevated prostate specific antigen [PSA] (principal) | CPT/HCPCS: 36415; 84153; 84154 ==

== ENCOUNTER 2023-05-29 21:19 | Emergency (ER) | payer OTHER, SELFPAY ==
[2023-05-29] VITALS (7 sets, daily range): BP systolic 126–163; BP diastolic 86–101; PULSE 72–82; RESP 15–18; TEMP 36.6; O2SAT 96–100; BMI 26.9
--- NOTE | 2023-05-29 21:26 | EKG12_ITS ---
Test Reason : NEURO SX Blood Pressure : / mmHG Vent. Rate : 070 BPM Atrial Rate : 070 BPM P-R Int : 180 ms QRS Dur : 092 ms QT Int : 392 ms P-R-T Axes : 020 -13 022 degrees QTc Int : 423 ms Normal sinus rhythm Septal infarct , age undetermined Abnormal ECG Confirmed by DEMOND MIXON, ANNIE ([id number]), editor city [place]IN FLORES ([id number]) on 05/31/2023 10:41:14 AM Referred By: Confirmed By:ANNIE LAGOS MD
--- NOTE | 2023-05-29 21:27 | CT_ITS ---
INDICATION: Neuro deficit, acute, stroke suspected EXAMINATION: CTA Head and Neck W/ Contrast Injection (and W/O Contrast Images if performed) TECHNIQUE: Noncontrast axial images were obtained of the brain. Subsequently, routine carotid CT angiogram protocol was performed with IV contrast. In addition, images were obtained of the [place]. Sagittal and coronal reconstructed images and 3D reconstructions were reviewed. Individualized dose optimization techniques were used for this CT. IV contrast dosage and agent: 100 mL of Isovue-370. COMPARISON: 06/15/2022 MRIs. FINDINGS: --CT BRAIN: BRAIN PARENCHYMA: No evidence of an acute infarct. No evidence of acute hemorrhage. No evidence of a mass. CSF SPACES: The ventricles, sulci and subarachnoid cisterns are appropriate for age. CALVARIUM, SKULL BASE, PARANASAL SINUSES AND MASTOID AIR CELLS: No fracture. Air-fluid levels in the bilateral maxillary sinuses. ORBITS: The globes, extraocular muscles, optic nerves and retrobulbar fat are unremarkable. --CTA HEAD: No evidence of arterial flow limiting stenosis. No evidence of large vessel occlusion. No aneurysm. [place] anatomy is unremarkable. --CTA NECK: AORTIC ARCH AND BRANCHES: No significant stenosis of the visualized portions. RIGHT CCA: No significant stenosis. No dissection. RIGHT ICA: No significant stenosis. No dissection. LEFT CCA: No significant stenosis. No dissection. LEFT ICA: No significant stenosis. No dissection. RIGHT VERTEBRAL ARTERY: No significant stenosis. No dissection. LEFT VERTEBRAL ARTERY: No significant stenosis. No dissection. NECK SOFT TISSUES: Unremarkable. THYROID: Right lobe nodule measuring approximately 2.0 cm. THORACIC INLET: Visualized lung apices are unremarkable. CT/CTA Head AND Neck W/ Contrast IMPRESSION: 1. No acute intracranial abnormality. 2. Normal CTA of the head and neck. 3. Bilateral maxillary sinus disease. Electronically Signed: Salazar Villa DO at 22:26 EST ,
--- NOTE | 2023-05-29 21:29 | EDS_ITS ---
HPI History of Present Illness Chief Complaint: Neuro S/Sx Informant: patient and spouse/S.O. Onset/Context/Timing Onset: Today and Hours Context: Gradual Onset Timing: Continuous Current Severity: Mild Maximum Severity: Mild Associated Symptoms Associated Symptoms: Negative for Headache, Nausea, Vomiting or Chest Pain Narrative Narrative: Past medical history of hypertension, high cholesterol and prior renal infarct. No prior TIA or CVA. Around 915 this morning he was having some slurred speech. 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 He seemed confused. He said he went to walk the dog and got the leash but was not taking the dog with him. He was spilling food. Not acting his baseline. Has had multiple episodes like this over the last year without any specific diagnosis. He has had negative CTs and MRIs and MRAs of his brain and neck. Prior similar symptoms: Yes Recent Illness/Hospitalization: No PFSH PFSH Medical History KEISHA inhibitor-aggravated angioedema Allergic rhinitis ASD (atrial septal defect) Congenital heart disease COVID-19 Drug-induced hypersensitivity reaction Gout Hay fever Hyperlipidemia Hypertension Paroxysmal A-fib Patent foramen ovale Renal infarction Home Medications simvastatin 5 mg tablet 20 mg PO QHS cholesterol 06/18/18 [History Last Taken Unknown] allopurinol 100 mg tablet 100 mg PO DAILY 06/14/22 [History Last Taken Unknown] montelukast 10 mg tablet 10 mg PO QHS 06/14/22 [History Last Taken Unknown] amlodipine 10 mg tablet 10 mg PO DAILY #3 tabs 06/16/22 [Rx Last Taken Unknown] hydrochlorothiazide 25 mg tablet 25 mg PO DAILY #30 tabs 06/16/22 [Rx Last Taken Unknown] cetirizine 10 mg tablet (Zyrtec) 10 mg PO DAILY 02/09/23 [History Last Taken Unknown] ciclopirox 8 % topical solution 1 applic topical QHS 02/09/23 [History Last Taken Unknown] fluticasone propionate 50 mcg/actuation nasal spray,suspension 2 spray intranasal DAILY 02/09/23 [History Last Taken Unknown] metoprolol succinate 50 mg tablet,extended release 24 hr 25 mg PO DAILY 05/05/23 [History Last Taken Unknown] Allergy/AdvReac Type Severity Reaction Status Date / Time lisinopril Allergy Mild LIGHT Verified 05/29/23 21:27 HEADED, FLUSHING, HIVES Family History Father CAD (coronary artery disease) Hypertension Grandfather , 52 CAD (coronary artery disease) Other Cancer Heart disease Surgical History History of sinus surgery Hx of tonsillectomy PATENT FORAMEN OVALE CLOSURE WITH PATCH Social History household members: spouse number of children: 2 current occupational status: employed 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 Review of Systems ROS Unobtainable: Denies due to encephalopathy Constitutional Constitutional ED: Denies chills or fever(s) Eyes Eyes: Denies blurry vision ENT ENT ED: Denies ear pain Cardiovascular Cardiovascular: Denies chest pain Respiratory/Chest Respiratory/Chest: Denies cough Gastrointestinal Gastrointestinal: Denies abdominal pain Genitourinary Genitourinary ED: Denies dysuria or hematuria Musculoskeletal Musculoskeletal: Denies arthralgias Integumentary Denies abscess Neurologic Neurologic: Denies headache(s) Psychiatric Psychiatric: Denies anxiety Endocrine Endocrinology: Denies polydipsia Hematologic/Lymphatic Hematologic/Lymphatic: Denies easy bleeding or easy bruising Allergic/Immunologic Allergic/Immunologic ED: Denies mouth swelling or urticaria EXAM Physical Exam Narrative Exam Narrative: Well-appearing 52-year-old male. Vital signs are stable and afebrile. Pulse ox 100% on room air no hypoxia. H EENT exam unremarkable. Neck nontender. Lungs clear equal symmetrical. Heart regular rhythm rate about 75 no murmur. Chest wall nontender. Abdomen soft nontender. Moving all 4 extremities. Calves are nontender without edema or cords. Neurologically is awake and alert. Currently normal speech. No facial droop. Extraocular motions are intact. Pupils are round and reactive to light. Bilateral 5/5 independent jeweler strength. Fingertip to nose within normal limits. Normal rapid hand movements. Dorsi and plantarflexion intact. He can lift either arm or leg without any drift. NIH score is 0. Const Vital Signs: 05/29/23 21:24 05/29/23 21:26 05/29/23 22:13 Temperature 97.8 F Temperature Source Temporal Pulse Rate 74 76 Respiratory Rate 16 18 Blood Pressure 146/101 H 163/97 H Blood Pressure Mean 116 119 Pulse Ox 100 97 Oxygen Delivery Method Room Air Room Air Room Air 05/29/23 21:26 05/29/23 21:56 05/29/23 22:26 Temperature Temperature Source Pulse Rate 74 72 74 Respiratory Rate 16 15 15 Blood Pressure 146/101 H 140/88 H 126/90 H Blood Pressure Mean 116 105 102 Pulse Ox 100 98 97 Oxygen Delivery Method Room Air Room Air Room Air Positive well nourished and well developed; Negative for obese, cachectic, contractures or unkempt General Appearance ED: well developed and NAD; Negative for unkempt, cachectic or contractures Nutritional Appearance: Negative for cachectic or obese HEENT Reports moist mucous membranes; Denies dry mucous membranes atraumatic; Negative for trauma Nose: Negative for other Mouth ED: No dry mucous membranes Mouth: No dry mucous membranes Eyes PERRL and EOMs intact bilaterally General Eye ED: Negative for pale conjunctiva or scleral icterus Neck no lymphadenopathy, supple and no JVD General: Negative for tenderness Thyroid: Negative for other Chest Wall inspection of chest normal and palpation of chest normal Chest: Negative for other Resp normal respiratory effort and clear to auscultation bilaterally Effort and Inspection: Negative for retractions Auscultation: Negative for rales, rhonchi or wheezes Cardio no murmurs Rate: regular rate Rhythm: regular rhythm Heart Sounds: Negative for S1 normal or S2 normal GI normal to inspection, nondistended, normoactive bowel sounds, soft to palpation, non-tender and non-distended Inspection: Negative for abdominal distention Auscultation: normoactive bowel sounds Palpation: Negative for tender or guarding Bladder / Kidney Exam: No other Back/Spine no CVA tenderness General Back: Negative for CVA tenderness Cervical Spine: Negative for cervical spine tenderness Thoracic Spine / Upper Back: Negative for thoracic spinal tenderness Lumbar Spine / Lower Back: Negative for lumbar spinal tenderness Extremity normal to inspection General Extremety ED: Negative for deformity, edema or tenderness General Extremity: Negative for deformity or edema Neuro oriented x3, CN's II-XII intact bilaterally and no sensory deficits noted Speech: speech normal Motor Exam: strength 5/5 throughout Psych mental status grossly normal Appearance: Negative for unkempt Attitude: No agitated Mood & Affect: Negative for depressed, anxious or tearful Skin no wounds General Skin Exam: Negative for jaundice Lesions: no lesions Rashes: no rashes Trauma: Negative for abrasion or laceration MDM MDM MDM Narrative Medical decision making narrative: 52-year-old male with mental status change. Prior episodes of the last year without specific diagnosis. Undergoing stroke workup but clinically his NIH is 0. He is not a tPA candidate. I reviewed his past CAT scans, MRIs and MRAs are unremarkable. Repeat exam at 10:45 PM patient doing well. I had a very candid discussion with both he and his . I do think this is secondary to his alcohol level tonight. According to his there is a significant family history on his side of the family of alcohol abuse. History & Record Review Discussion w/independent historian: Patient and Family Additional record(s) reviewed:: Prior inpatient record, Prior outpatient record, Prior ED visit, Prior labs and No prior records Lab Data Attestation: I reviewed the patient's lab results. Lab results narrative: CBC unremarkable. White count of 6. H&H of 13 and 40. Platelets 289. PT/INR normal at 12 and 1. PTT 32. Electrolytes show potassium of 3.2. Gap of 8. Normal BUN of 11 creatinine 0.9. Glucose 137. Troponin 6. Alcohol level is elevated to 76. I believe this is the cause of his symptoms. Labs: Laboratory Results - last 24 hr 05/29/23 21:25 WBC 6.7 RBC 4.50 L Hgb 13.6 Hct 40.8 MCV 90.7 MCH 30.2 MCHC 33.3 RDW Std Deviation 47.8 H RDW Coeff of Jean 14.3 Plt Count 289 MPV 10.8 Immature Gran % (Auto) 0.600 Neut % (Auto) 52.0 Lymph % (Auto) 34.9 [place] % (Auto) 8.8 Eos % (Auto) 2.5 Baso % (Auto) 1.2 H Absolute Neuts (auto) 3.5 Absolute Lymphs (auto) 2.33 Nucleated RBC % 0 PT 12.7 INR 1.0 APTT 32.5 Sodium 143 Potassium 3.2 L Chloride 107 Carbon Dioxide 28.0 Anion Gap 8 BUN 11 Creatinine 0.95 Estim Creat Clear Calc 102.11 Est GFR (MDRD) Af Amer 108 Est GFR (MDRD) Non-Af 89 BUN/Creatinine Ratio 11.6 Glucose 137 H Calcium 8.9 Troponin I High Sens 6 Ethyl Alcohol 276.0 Radiography Chest X-Ray - ED: 1 View, Read by ED Physician, Read by Radiologist, Heart, Lungs, Mediastinum, Bony Structures, No Acute Disease and Chronic Changes Diagnostic Testing: Clinical Impression(s) from Imaging Studies Head/Neck CTA 05/29/23 21:27 IMPRESSION: 1. No acute intracranial abnormality. 2. Normal CTA of the head and neck. 3. Bilateral maxillary sinus disease. Electronically Signed: Salazar Villa DO at 22:26 EST , Chest X-Ray 05/29/23 21:50 IMPRESSION: No evidence of cardiopulmonary disease. Electronically Signed: Salazar Villa DO at 22:16 EST , X-ray, portable, single view interpreted by myself and radiologist shows no acute abnormality. Normal cardiac silhouette. Normal mediastinum. Normal lung frost. Rhythm Strip Rhythm Strip: Sinus Rhythm Rate: 70 Ectopy: None EKG Initial EKG: Attestation: I personally reviewed and interpreted this EKG as follows: Interpretation: Sinus Rhythm and No Acute Injury Pattern Comments: Normal sinus rhythm rate is 70 no acute signs of ID, ischemia or dysrhythmia. Discharge Plan Triage Chief Complaint: Neuro S/Sx ED Provider: Lupillo Sainz Dx/Rx/DC Orders Clinical Impression: Acute alteration in mental status, History of hypertension, Acute alcohol intoxication Instructions: ED Alcohol Intoxication Prescriptions: No Action simvastatin 5 mg tablet 20 mg PO QHS fluticasone propionate 50 mcg/actuation spray,suspension 2 spray intranasal DAILY Rx Instructions: administer into each nostril cetirizine [Zyrtec] 10 mg tablet 10 mg PO DAILY ciclopirox 8 % solution 1 applic topical QHS metoprolol succinate 50 mg tablet extended release 24 hr 25 mg PO DAILY Patient Comments: TAKE 1 TABLET BY MOUTHAONCE DAILY allopurinol 100 mg tablet 100 mg PO DAILY montelukast 10 mg tablet 10 mg PO QHS Patient Comments: TAKE 1 TABLET BY MOUTH ATTBEDTIME amlodipine 10 mg Tablet 10 mg PO DAILY Qty: 3 1RF hydrochlorothiazide 25 mg tablet 25 mg PO DAILY Qty: 30 1RF Primary Care Provider: Salazar Belcher Referrals: Salazar Belcher MD [Primary Care Provider] - As Needed Activity Restrictions/Additional Instructions: Call and on follow-up your primary care physician as needed. Follow-up with your employer about your benefits regarding alcohol detox and treatment. No further drinking tonight. Disposition Disposition: Home, Self Care
--- NOTE | 2023-05-29 21:50 | RAD_ITS ---
INDICATION: Neuro deficit, acute, stroke suspected EXAMINATION/TECHNIQUE: X-RAY - XR Chest 1 View COMPARISON: 06/14/2022. FINDINGS: LINES/DEVICES: None. LUNGS: No consolidation or evidence of an effusion. No evidence of edema or a pneumothorax. MEDIASTINUM AND CARDIOVASCULAR STRUCTURES: Cardiac silhouette is normal in size and contour. Mediastinum is unremarkable. BONES AND SOFT TISSUES: No acute abnormality. RAD/Chest 1 View IMPRESSION: No evidence of cardiopulmonary disease. Electronically Signed: Salazar Villa DO at 22:16 EST ,
[2023-05-29 21:53] LABS: Partial Thromboplast Time 32.5 Seconds (24.1-36.2); Prothrombin Time (Protime)PT. 12.7 SECONDS (11.7-14.9)
[2023-05-29 21:57] LABS: Absolute Lymphocyte Count 2.33 X10^3/uL (0.83-4.51); Absolute Neutrophil Count 3.5 X10^3/uL (2.0-7.7); Basophil# 0.08 X10^3/uL; Basophil% 1.2 % (0-1); Eosinophil# 0.17 X10^3/uL; Eosinophils% 2.5 % (0-5); Hematocrit 40.8 % (40-54); Hemoglobin 13.6 g/dL (13.0-16.5); Lymphocyte # 2.33 X10^3/ul (0.83-4.51); Lymphocyte % 34.9 % (19-41); Mean Corp Hgb Conc 33.3 g/dL (32-36); Mean Corpuscular Hgb 30.2 pg (27.0-32.0); Mean Corpuscular Volume 90.7 fL (80-94); Mean Platelet Vol. 10.8 fl (6.2-12.0); Monocyte# 0.59 X10^3/uL; Monocyte% 8.8 % (0-10); NRBC Flagged by Analyzer 0 % (0-5); Neutrophil # 3.47 X10^3/uL (2.7-7.7); Platelet Count 289 K/mm3 (150-450); RBC Distribution Width CV 14.3 % (11.6-14.6); RBC Distribution Width SD 47.8 fl (35.1-43.9); White Blood Count 6.7 K/mm3 (4.4-11.0)
[2023-05-29 22:01] LABS: Anion Gap 8 (5-15); BUN 11 mg/dL (7-18); BUN/Creat Ratio 11.6 RATIO (10-20); Calcium,Total 8.9 mg/dL (8.5-10.1); Chloride 107 mmol/L (98-107); Creatinine, Serum 0.95 mg/dL (0.70-1.30); EST Glomerular Filtration Rate 89 mL/min (>60); Est Glom Filt Rate - Afr Amer 108 mL/min (>60); Estimated Creatinine Clearance 102.11 ml/min; Glucose 137 mg/dL (74-106); Potassium 3.2 mmol/L (3.5-5.1); Sodium Level 143 mmol/L (136-145); Troponin-I HS 6 pg/mL (3.0-78.0)
[2023-06-03 09:00] LABS: Bedside Glucose 122 mg/dL (74-106)
== END 2023-05-29 23:38 | disposition home or self-care (01) ==
PROVIDERS: Emergency Provider Emergency Medicine; PCP Family Medicine; Visit Provider Emergency Medicine
DX: R41.82 Altered mental status, unspecified (principal); I48.0 Paroxysmal atrial fibrillation; I10 Essential (primary) hypertension; F10.10 Alcohol abuse, uncomplicated; R47.81 Slurred speech; E78.00 Pure hypercholesterolemia, unspecified; Z79.899 Other long term (current) drug therapy; Z86.16 Personal history of COVID-19; Z87.891 Personal history of nicotine dependence
CPT/HCPCS: 70496; 70498; 71045; 80048; 82077; 82962; 84484; 85025; 85610; 85730; 93005; 99284; Q9967; A4216

== ENCOUNTER 2023-09-10 21:51 | Emergency (ER) | payer OTHER, SELFPAY ==
[2023-09-10 21:52] VITALS: BP 119/85; PULSE 84; RESP 16; TEMP 36.6; O2SAT 99; BMI 24.4
--- NOTE | 2023-09-10 21:55 | CT_ITS ---
EXAM: CT HEAD WITHOUT INTRAVENOUS CONTRAST CLINICAL INDICATION: head injury TECHNIQUE: Multiple axial images were obtained of the head without intravenous contrast. This CT exam was performed using one or more of the following dose reduction techniques: automated exposure control, adjustment of the mA and/or kV according to patient size, and/or use of iterative reconstruction technique. RADIATION DOSE: CTDIvol = 44.99 mGy, DLP = 934.09 mGy-cm COMPARISON: MRI brain 06/15/2022. FINDINGS: BRAIN AND EXTRA-AXIAL SPACES: Mild generalized atrophy. Mild low density bilaterally in the deep white matter. No intra- or extra-axial hemorrhage. No evidence of acute infarct. No intracranial mass or mass effect. There is preservation of the [place]/white matter interface. Posterior fossa structures are unremarkable. No hydrocephalus. Basal cisterns are patent. BONES/JOINTS: Unremarkable. No discrete lytic or blastic abnormalities. SINUSES: Mucosal thickening left maxillary sinus. MASTOID AIR CELLS: Unremarkable. Clear. ORBITS: Visualized globes, extraocular muscles, optic nerves and retrobulbar fat appear unremarkable. CT/Brain/Head without Contrast IMPRESSION: 1. Mild generalized atrophy. Mild low density bilaterally in the deep white matter. This likely represents chronic small vessel ischemic changes in the deep white matter. 2. Mucosal thickening left maxillary sinus. Electronically Signed: Julian Mclean MD at 22:47 EST ,
--- NOTE | 2023-09-10 21:56 | EX.ED.GENINJ ---
HPI History of Present Illness Chief Complaint: Fall Detail of Chief Complaint: Fall with head injury Informant: patient Narrative Narrative: Patient presents to the emergency department after falling and hitting his head. He was in an operating room when he tripped over a cord fell backwards striking his head. Patient was unconscious for about 30 seconds. Surgeon apparently stapled his head wound and was evaluated by hospitalist and brought down to the emergency department for evaluation. Patient on a baby aspirin. Currently he describes some mild head pain. He denies any neck pain. Denies paresthesias in his arms or legs. Denies any other injuries. He is unsure of his last tetanus. [facility] Medical History KEISHA inhibitor-aggravated angioedema Allergic rhinitis ASD (atrial septal defect) Congenital heart disease COVID-19 Drug-induced hypersensitivity reaction Gout Hay fever Hyperlipidemia Hypertension Paroxysmal A-fib Patent foramen ovale Renal infarction Home Medications simvastatin 5 mg tablet 20 mg PO QHS cholesterol 06/18/18 [History Last Taken Unknown] allopurinol 100 mg tablet 100 mg PO DAILY 06/14/22 [History Last Taken Unknown] montelukast 10 mg tablet 10 mg PO QHS 06/14/22 [History Last Taken Unknown] amlodipine 10 mg tablet 10 mg PO DAILY #3 tabs 06/16/22 [Rx Last Taken Unknown] hydrochlorothiazide 25 mg tablet 25 mg PO DAILY #30 tabs 06/16/22 [Rx Last Taken Unknown] cetirizine 10 mg tablet (Zyrtec) 10 mg PO DAILY 02/09/23 [History Last Taken Unknown] ciclopirox 8 % topical solution 1 applic topical QHS 02/09/23 [History Last Taken Unknown] fluticasone propionate 50 mcg/actuation nasal spray,suspension 2 spray intranasal DAILY 02/09/23 [History Last Taken Unknown] metoprolol succinate 50 mg tablet,extended release 24 hr 25 mg PO DAILY 05/05/23 [History Last Taken Unknown] Allergy/AdvReac Type Severity Reaction Status Date / Time lisinopril Allergy Mild LIGHT Verified 05/29/23 21:27 HEADED, FLUSHING, HIVES Family History Father CAD (coronary artery disease) Hypertension Grandfather , 52 CAD (coronary artery disease) Other Cancer Heart disease Surgical History History of sinus surgery Hx of tonsillectomy PATENT FORAMEN OVALE CLOSURE WITH PATCH Social History household members: spouse number of children: 2 current occupational status: employed 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 Smoking Status: Former smoker how long ago did patient quit smokin alcohol intake: current substance use type: does not use ROS ROS ED Review of Systems ROS Unobtainable: other Constitutional Constitutional ED: Reports lethargy; Denies chills, fever(s), sweats or weight loss Eyes Eyes: Denies blurry vision, change in vision or diplopia ENT ENT ED: Denies rhinorrhea or sore throat Cardiovascular Cardiovascular: Denies chest pain, orthopnea or racing heartbeat Respiratory/Chest Respiratory/Chest: Reports dyspnea and dyspnea on exertion; Denies cough, orthopnea or sputum Gastrointestinal Gastrointestinal: Denies abdominal pain, diarrhea, nausea or vomiting Genitourinary Genitourinary ED: Denies dysuria, hematuria or urinary frequency Musculoskeletal Musculoskeletal: Denies arthralgias, back pain, myalgias or neck pain Integumentary Reports other Details: Scalp laceration ; Denies abscess, Abrasions or rash Neurologic Neurologic: Reports headache(s); Denies weakness Psychiatric Psychiatric: Denies anxiety, depression or suicidal thoughts Endocrine Endocrinology: Denies polydipsia, polyphagia or polyuria Hematologic/Lymphatic Hematologic/Lymphatic: Denies easy bleeding, easy bruising or lymphadenopathy Allergic/Immunologic Allergic/Immunologic ED: Denies mouth swelling, tongue swelling or urticaria EXAM Physical Exam Const Vital Signs: 09/10/23 21:52 09/10/23 22:01 Temperature 98 F Temperature Source Oral Pulse Rate 84 Respiratory Rate 16 Respiratory Effort Normal Respiratory Depth Normal Respiratory Pattern Normal Blood Pressure 119/85 H Blood Pressure Mean 96 Pulse Ox 99 Oxygen Delivery Method Room Air Room Air Positive well nourished and well developed General Appearance ED: well developed and NAD HEENT Reports TM's clear and moist mucous membranes HEENT Narrative: Patient is a 2.5 cm laceration over the posterior occiput with [address] No active bleeding. No bony depressions noted. normocephalic and atraumatic; Negative for trauma or tenderness Tympanic Membrane ED: Yes TM's clear Eyes PERRL and EOMs intact bilaterally General Eye ED: Negative for pale conjunctiva or scleral icterus Neck no lymphadenopathy, supple and no JVD General: Negative for tenderness Chest Wall inspection of chest normal and palpation of chest normal Chest Narrative: No C-spine tenderness on exam. Normal active range of motion is painless. Chest: Negative for tenderness Resp normal respiratory effort and clear to auscultation bilaterally Effort and Inspection: Negative for respiratory distress or pain with movement Auscultation: Negative for rhonchi, wheezes or diminished lung sounds Cardio regular rate, regular rhythm, S1 normal heart sound, S2 normal heart sound and no murmurs Peripheral Pulses: pulses 2+ throughout GI normal to inspection, nondistended, normoactive bowel sounds, soft to palpation, non-tender, non-distended and no masses Back/Spine no CVA tenderness and no thoracic nor lumbar tenderness Extremity normal to inspection General Extremety ED: Negative for edema General Extremity: Negative for edema Neuro oriented x3, CN's II-XII intact bilaterally, no sensory deficits noted and gait normal Sensorium / Orientation: awake, alert, oriented to person, oriented to place and oriented to time Motor Exam: strength 5/5 throughout and strength abnormal Psych mental status grossly normal Skin no rashes or lesions noted and no wounds MDM MDM MDM Narrative Medical decision making narrative: Patient presents with head injury with loss of consciousness. Will obtain a CT scan of the brain to evaluate for acute intracranial hemorrhage versus skull fracture. CT scan of the brain without contrast was essentially unremarkable. 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 Given this is a workman comp injury that occurred at work. Patient is hesitating providing blood for alcohol testing and urine drug testing. He will think about whether or not he wants to go through with this. To me he denied drinking alcohol today. Patient did decide to allow [facility] to perform the testing. CT scan of his brain was essentially unremarkable. From my standpoint he can be discharged to home. He has a closed head injury with scalp laceration that was repaired by surgeon in the operating room where the injury occurred. Lab Data Labs: Laboratory Results - last 24 hr 09/10/23 23:51 Ur Drug Screen Comment Radiography Diagnostic Testing: Clinical Impression(s) from Imaging Studies Brain CT 09/10/23 21:55 IMPRESSION: 1. Mild generalized atrophy. Mild low density bilaterally in the deep white matter. This likely represents chronic small vessel ischemic changes in the deep white matter. 2. Mucosal thickening left maxillary sinus. Electronically Signed: Julian Mclean MD at 22:47 EST , Discharge Plan Triage Chief Complaint: Fall ED Provider: Cassandra Mantilla Dx/Rx/DC Orders Clinical Impression: Closed head injury, Fall, Laceration of scalp Instructions: Concussion Dc, ED Fall with Uncertain Cause, ED Laceration Scalp Stitches or [place] Prescriptions: No Action simvastatin 5 mg tablet 20 mg PO QHS fluticasone propionate 50 mcg/actuation spray,suspension 2 spray intranasal DAILY Rx Instructions: administer into each nostril cetirizine [Zyrtec] 10 mg tablet 10 mg PO DAILY ciclopirox 8 % solution 1 applic topical QHS metoprolol succinate 50 mg tablet extended release 24 hr 25 mg PO DAILY Patient Comments: TAKE 1 TABLET BY MOUTHAONCE DAILY allopurinol 100 mg tablet 100 mg PO DAILY montelukast 10 mg tablet 10 mg PO QHS Patient Comments: TAKE 1 TABLET BY MOUTH ATTBEDTIME amlodipine 10 mg Tablet 10 mg PO DAILY Qty: 3 1RF hydrochlorothiazide 25 mg tablet 25 mg PO DAILY Qty: 30 1RF Primary Care Provider: Salazar Belcher Referrals: [facility] [Group of Physicians] - 10 Day for suture removal Salazar Belcher MD [Primary Care Provider] - Disposition Disposition: Home, Self Care
--- OUTSIDE RECORDS SUMMARY | 2023-09-10 22:13 | XMS RPT_ITS | CCD ---
Author Name Unknown Address [address] [place] [address] Organization [facility] Care Team Providers Care Corrosion Technician Name Role Phone Farzaneh Villarreal LPN Unavailable Unavailab SIMBA Stanley Admitting Unavailable SIMBA TUBBS Attending Unavailable Indra Fabian MD Primary Care Provider Indra Fabian MD Primary Care Provider [phone] INDRA FABIAN Primary Care Unavailable INDRA FABIAN Attending Unavailable INDRA FABIAN Referring Unavailable INDRA FABIAN Primary Care Unavailable INDRA FABIAN Attending Unavailable INDRA FABIAN Primary Care Unavailable INDRA FBAIAN Attending Unavailable Allergies Allergy Classification Reported Allergen(s) Allergy Type Date of Onset Reaction(s) Facility (1 source) Lisinopril Drug Allergy 03-18-2017 rash, hives, flushing [facility] Work Phone: (2 sources) Angiotensin-conv erting enzyme inhibitor agent; Translations: [HERNANDEZ INHIBITORS] Drug Allergy 07-12-2013 [facility] Work Phone: (13 sources) Angiotensin-conv erting enzyme inhibitor agent Drug Allergy 07-12-2013 [facility] Work Phone: Medications Current Medications Medication Drug Class(es) Dates Sig (Normalized) Sig (Original) ciclopirox 80 mg/ml topical solution (10 sources) Start: 02-22-2022 End: 02-22-2023 Ciclopirox (LOPROX) 8 % solution Apply to affected area daily at bedtime. For a week. Then clean off with nail lao remover and repeat process weekly 6.6 mL 11 02/22/2022 02/22/2023 Active Completed/Discontinued Medications Medication Drug Class(es) Dates Sig (Normalized) Sig (Original) albuterol 1 mg/ml inhalant solution (1 source) beta2-Adrenergic Agonist Start: 03-18-2017 ALBUTEROL SULFATE (5 MG/ML) 0.5% NEBU as directed ALBUTEROL SULFATE [id number] Farzaneh Villarreal LPN allopurinol 100 mg oral tablet (17 sources) Xanthine Oxidase Inhibitor Start: 04-21-2023 End: 08-31-2023 take 2 tablets by mouth once daily allopurinol (ZYLOPRIM) 100 mg tablet Take 2 tablets by mouth once daily. For gout. 180 tablet 1 08/31/2023 Active Problems Active Problems Problem Classification Problem Date Documented Da te Episodic/Chronic Administrative/social admission (2 sources) Marital problems; Translations: [Problems in relationship with spouse or partner] Onset: 08-31-2023 08-31-2023 Episodic Alcohol-related disorders (2 sources) Alcohol abuse; Translations: [Alcohol abuse, uncomplicated] Onset: 06-01-2023 08-31-2023 Chronic Cardiac and circulatory congenital anomalies (14 sources) Congenital heart disease; Translations: [Congenital malformation of heart, unspecified] Onset: 07-12-2016 04-02-2021 Chronic Disorders of lipid metabolism (19 sources) Mixed hyperlipidemia; Translations: [Mixed hyperlipidemia] Onset: 02-17-2011 04-02-2021 Chronic Essential hypertension (19 sources) Benign essential hypertension; Translations: [Essential (primary) hypertension] Onset: 07-12-2013 04-02-2021 Chronic Genitourinary symptoms and ill-defined conditions (14 sources) Microscopic hematuria; Translations: [Other microscopic hematuria] Onset: 02-22-2022 02-22-2022 Episodic Gout and other crystal arthropathies (17 sources) Gout; Translations: [Gout, unspecified] Onset: 03-22-2012 04-02-2021 Chronic Malaise and fatigue (1 source) Fatigue; Translations: [Other fatigue] Episodic Other lower respiratory disease (1 source) Snoring; Translations: [Snoring] Episodic Other screening for suspected conditions (not mental disorders or infectious disease) (20 sources) Patient encounter status; Translations: [Encounter for screening for malignant neoplasm of colon] Onset: 02-22-2022 02-22-2022 Episodic Other upper respiratory disease (14 sources) Allergic rhinitis; Translations: [Allergic rhinitis, unspecified] Onset: 12-12-2014 04-02-2021 Chronic Other upper respiratory disease (2 sources) Seasonal allergic rhinitis; Translations: [Other allergic rhinitis] Chronic Residual codes; unclassified (1 source) Hypersomnia; Translations: [Hypersomnia, unspecified] Chronic Residual codes; unclassified (7 sources) Obstructive sleep apnea syndrome; Translations: [Obstructive sleep apnea (adult) (pediatric)] Onset: 02-10-2023 02-10-2023 Chronic Residual codes; unclassified (1 source) Confusional state; Translations: [Disorientation, unspecified] Episodic Residual codes; unclassified (1 source) Disturbance of attention; Translations: [Other general symptoms and signs] Episodic Unclassified (1 source) Procedure carried out on subject; Translations: [Tobacco abuse counseling] Onset: 03-18-2017 03-18-2017 Viral infection (1 source) COVID-19; Translations: [Other encephalopathy] Chronic Past or Other Problems Problem Classification Problem Date Documented Da te Episodic/Chronic Immunizations and screening for infectious disease (1 source) Encounter for immunization; Translations: [Encounter for immunization] Onset: 02-23-2023 Episodic Other and unspecified benign neoplasm (4 sources) Lipoma of skin and subcutaneous tissue of neck; Translations: [Benign lipomatous neoplasm of skin and subcutaneous tissue of head, face and neck] Onset: 02-23-2023 02-23-2023 Episodic Other infections; including parasitic (10 sources) Personal history of other infectious and parasitic diseases; Translations: [History of COVID-19] Onset: 12-31-2022 Episodic Other skin disorders (13 sources) Nail discoloration; Translations: [Other nail disorders] Onset: 02-22-2022 02-22-2022 Episodic Screening and history of mental health and substance abuse codes (14 sources) Ex-smoker; Translations: [Personal history of nicotine dependence] Onset: 04-02-2021 04-02-2021 Episodic Results Test Name Value Interpretation Reference Range Facil ity Vital Signs Date Time Vital Sign Value Performing Clinician Faci lity 08-31-2023 16:25-0500 Body weight 84.82 kg Indra Fabian MD Work Phone: [facility] 08-31-2023 16:25-0500 Diastolic blood pressure 82 mm[Hg] Indra Fabian MD Work Phone: [facility] 08-31-2023 16:25-0500 Heart rate 64 /min Indra Fabian MD Work Phone: [facility] 08-31-2023 16:25-0500 Systolic blood pressure 132 mm[Hg] Indra Fabian MD Work Phone: [facility] 02-23-2023 18:44-0400 Diastolic blood pressure 97 mm[Hg] Indra Fabian MD Work Phone: [facility] 02-23-2023 18:44-0400 Heart rate 65 /min Indra Fabian MD Work Phone: [facility] 02-23-2023 18:44-0400 Systolic blood pressure 166 mm[Hg] Indra Fabian MD Work Phone: [facility] 02-23-2023 16:36-0400 Body weight 88.45 kg Indra Fabian MD Work Phone: [facility] 02-23-2023 16:36-0400 Respiratory rate 16 /min Indra Fabian MD Work Phone: [facility] 12-31-2022 15:25-0400 Diastolic blood pressure 94 mm[Hg] Indra Fabian MD Work Phone: [facility] 12-31-2022 15:25-0400 Systolic blood pressure 142 mm[Hg] Indra Fabian MD Work Phone: [facility] 12-31-2022 14:25-0400 Body weight 87.54 kg Indra Fabian MD Work Phone: [facility] 12-31-2022 14:25-0400 Heart rate 76 /min Indra Fabian MD Work Phone: [facility] 12-31-2022 14:25-0400 Respiratory rate 16 /min Indra Fabian MD Work Phone: [facility] 12-31-2022 14:25-0400 SaO2% (BldA) [Mass fraction] 100 % Indra Fabian MD Work Phone: [facility] 06-23-2022 19:57-0500 Diastolic blood pressure 96 mm[Hg] Indra Fabian MD Work Phone: [facility] 06-23-2022 19:57-0500 Systolic blood pressure 142 mm[Hg] Indra Fabian MD Work Phone: [facility] 06-23-2022 19:32-0500 Body weight 88 kg Indra Fabian MD Work Phone: [facility] 06-23-2022 19:32-0500 Heart rate 76 /min Indra Fabian MD Work Phone: [facility] 03-18-2017 10:29-0400 BMI (Body Mass Index) 22.59 kg/m2 Farzaneh Phil BOYKIN [facility] Work Phone: 03-18-2017 10:29-0400 Body Temperature 98 [degF] Farzaneh Phil [facility]YKIN [facility] Now [facility] Work Phone: 03-18-2017 10:29-0400 BP Diastolic 72 mm[Hg] Farzaneh Phil [facility]YKIN [facility] Now [facility] Work Phone: 03-18-2017 10:29-0400 BP Systolic 114 mm[Hg] Farzanehdemetris Villarreal LPN [facility] Work Phone: 03-18-2017 10:29-0400 Height 186.69 cm Farzaneh Phil [facility]KIN [facility] Work Phone: 03-18-2017 10:29-0400 Pulse (Heart Rate) 58 /min Farzanehdemetris Villarreal LPN [facility] Now C [facility]inic Work Phone: 03-18-2017 10:29-0400 Respiratory Rate 15 /min Farzaneh Villarreal LPN [facility] Work Phone: 03-18-2017 10:29-0400 Weight 78.74 kg Farzaneh Villarreal LPN [facility] Work Phone: Encounters Encounter Date Encounter Type Care Provider Facility Start: 08-31-2023 End: 08-31-2023 ambulatory INDRA FABIAN Facility:[facility] Start: 08-31-2023 End: 08-31-2023 Patient encounter procedure Indra Fabian MD Work Phone: [facility] Procedures Date Procedure Procedure Detail Performing Clinician Start: 04-20-2023 Lipid 1996 panel - S noman or Plasma Indra Fabian MD Work Phone: Start: 01-11-2023 CBC W/DIFF/PLT ([facility]) [facility] Start: 01-11-2023 Comprehensive metabo lic 2000 panel - Serum or Plasma [facility] Start: 01-11-2023 Thyrotropin [Units/volume] in Serum or Plasma [facility] Start: 01-11-2023 Thyroxine (T4) free [Mass/volume] in Serum or Plasma [facility] Start: 03-18-2017 Physical examination Physical exam, routine Farzaneh Villarreal LPN Plan of Treatment Date Care Activity Detail Author Start: 02-23-2033 Urine microalbumin profile [facility] Start: 04-20-2028 Lipid 1996 panel - S noman or Plasma Lipid Screening [facility] Start: 04-20-2028 Lipid panel Lipid Screening [facility] Start: 02-22-2027 LIPID SCREEN LIPID SCREEN [facility] Start: 04-20-2026 Diabetes Screening Diabetes Screenin g [facility] Start: 03-30-2026 LIPID SCREEN LIPID SCREEN [facility] Start: 01-11-2026 DIABETES SCREEN DIABETES SCREEN [facility] Start: 02-22-2025 DIABETES SCREEN DIABETES SCREEN [facility] Start: 08-31-2024 Annual PCP Team [place] [facility] Disease Visit Annual PCP Team Chronic Disease Visit [facility] Start: 08-31-2024 BP Controlled (<130/80) BP Controlle d (<130/80) [facility] Start: 07-03-2024 Depression Assessment Depression Ass essment [facility] Immunizations Immunization Date Immunization Notes Care Provider Fa cility 05-05-2023 influenza, seasonal, injectable Indra Fabian MD Work Phone: [facility] Work Phone: 02-23-2023 tetanus toxoid, redu jere diphtheria toxoid, and acellular pertussis vaccine, adsorbed Indra Fabian MD Work Phone: [facility] 05-19-2022 influenza virus vaccine, unspecified formulation Indra Fabian MD Work Phone: [facility] 05-23-2017 influenza, seasonal, injectable Indra Fabian MD Work Phone: [facility] 12-01-2012 tetanus toxoid, redu jere diphtheria toxoid, and acellular pertussis vaccine, adsorbed Indra Fabian MD Work Phone: [facility] 04-03-2012 influenza virus vaccine, unspecified formulation Indra Fabian MD Work Phone: [facility] 05-07-2009 novel [id number], preservative-free, injectable Indra Fabian MD Work Phone: [facility] Payers Date Payer Category Payer Private Health Insurance [id number] 2022 Private Health Insurance [id number] 2022 Private Health Insurance [id number] 2020 Unknown MMO MMO TPA [id number] 2020-Present [address] [place] [address] PPO [id number] 2020 Unknown MMO MMO TPA [id number] 2020-Present [address] [place] [address] PPO [id number] 2018 Unknown [id number] 1970 Unknown [id number] Social History Date Type Detail Facility Start: 02-22-2022 Tobacco smoking status NHIS Ex-smoke r [facility] Start: 04-02-2021 End: 09-01-2023 Alcohol intake Current drinker of alcohol (finding) [facility] Start: 1970 Sex Assigned At Not on file C [facility] Start: 11-07-2021 End: 11-17-2021 Exposure to SARS-CoV-2 (event) Not sure [facility] History of tobacco use Current smoker [facility] Start: 02-22-2022 Tobacco use and exposure Smoke less tobacco non-user [facility] Start: 06-23-2022 History SDOH Alcohol Frequency 2 [facility] Start: 06-23-2022 History SDOH Alcohol Std Drinks 1 [facility] Start: 06-23-2022 History SDOH Social Connections Phone 3 [facility] Start: 06-23-2022 History SDOH Social Connections Get Together 98 [facility] Start: 06-23-2022 History SDOH Physica l Activity MPS 12 [facility] Start: 06-23-2022 History SDOH Financial 5 [facility] Start: 02-22-2022 Tobacco Comment quit 1997 [facility] Start: 06-22-2022 End: 12-31-2022 History of Social function [place] [facility] Start: 06-22-2022 End: 12-31-2022 Social connection and isolation panel [facility] How often do you get together with friends or relatives? Patient refused [facility] Do you belong to any clubs or organizations such as druze groups, unions, fraternal or athletic groups, or school groups? Yes [facility] Are you now , , , , never or living with a partner? [facility] How often to you hav e a drink containing alcohol? Monthly or less [facility] How many standard dr inks containing alcohol do you have on a typical day? 1 or 2 [facility] How often do you hav e 6 or more drinks on 1 occasion? Never [facility] Do you feel stress - tense, restless, nervous, or anxious, or unable to sleep at night because your mind is troubled all the time - these days [OSQ] Not at all [facility] (I/We) worried [facility] (my/our) food would run out before (I/we) got money to buy more. Never true [facility] In the past 12 month s, was there a time when you were not able to pay the mortgage or rent on time? No [facility] Clinical Notes 07-12-2013 to 08-31-2023 Indra Fabian MD - 08/31/2023 4:00 PM Jennifer Dumont MA - 02/23/2023 6:44 PM EDTPatient Indra Tello MD - 02/23/2023 4:00 PM EDTIndra Fabian MD - 12/31/2022 2:17 PM EDT Note Date & Type Note Facility 08-31-2023 Note HNO ID: [id number] Author: INDRA FABIAN MD Service: ? Author Type: Physician Type: Progress Notes Filed: 09/01/2023 19:56 Note Text: Chief Complaint Patient presents with: F/U 6 months HPI Indra Rogers Arielle is a 52 year old male who presents here today for 6 month follow up. Patient with Hx of HTN, Hyperlipidemia, allergic rhinitis, ex-smoker, gout as well as those reviewed and addressed below and in ROS. Patient had a ER visit back in May 2023 and was intoxicated. He admits that this may have contributed to the episode back in 06/23/2022 where he was unable to identify the year or the time. In the ER had difficulty giving the Nursing his and SS #. He was drinking then. He has not had a drink since just prior to . He is also going to 180. He is not in another relationship. His marriage has had difficulty for years. His Twins are seniors this year. Any recent ER/hospital visits? None Any new concerns today? None Past medical history, appointments, medications, allergies reviewed. 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 Alcohol level was 276 normal CTA head/neck Allergic rhinitis 12/12/2014 ASD (atrial septal defect) 07/03/2013 Congenital heart disease, adult 07/12/2016 Persistent foramen ovale-surgically closed October, Drug-induced hypersensitivity reaction 07/12/2013 Essential hypertension, benign 07/12/2013 Ex-smoker 04/02/2021 Started age 20, up to 1/2 PPD and quit around age 27 Gout 03/22/2012 History of COVID-19 12/31/202206/2022 Hyperlipidemia, mixed 02/17/2011 Lipoma of neck 02/23/2023 Left posterior YAEL (obstructive sleep apnea) 02/10/2023 [facility] Paroxysmal atrial fibrillation (HCC) 07/12/2013 resolved PFO (patent foramen ovale) 07/03/2013 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 linsey cyst right back TONSILLECTOMY HX Family History FAMILY HISTORY Problem Relation Age of Onset Lipids Mother Lipids Father Hypertension Father Coronary Artery Disease Father 67 [place] Lipids Brother None Brother Coronary Artery Disease Paternal Grandfather of [place] 52 Patient Allergies ALLERGIES Allergen Reactions Hernandez Inhibitors Hives Current Medications Current Outpatient Medications on File Prior to Visit Medication Sig allopurinol (ZYLOPRIM) 100 mg tablet Take 2 tablets by mouth once daily. For gout. metoprolol succinate ER (TOPROL XL) 50 mg 24 hr tablet Take 1 tablet by mouth once daily. dupilumab (DUPIXENT) 300 mg/2 mL pen amLODIPine (NORVASC) 10 mg tablet Take 1 tablet by mouth once daily. hydroCHLOROthiazide 25 mg tablet Take 1 tablet by mouth once daily. simvastatin (ZOCOR) 20 mg tablet Take 1 tablet by mouth daily at bedtime. montelukast (SINGULAIR) 10 mg tablet Take 1 tablet by mouth daily at bedtime. fluticasone (FLONASE) 50 mcg/actuation nasal spray Use 2 Sprays in each nostril once daily. Rinse mouth after use. cetirizine (ZYRTEC) 10 mg tablet Take 10 mg by mouth once daily. Fluocinolone Acetonide 0.01 % external oil Apply 1 application to affected area twice daily as needed. No current facility-administered medications on file prior to visit. Social History Social History Tobacco Use Smoking status: Former Smokeless tobacco: Never Tobacco comments: quit 1997 Substance Use Topics Alcohol use: Yes Drug use: No Review of Symptoms REVIEW OF SYSTEMS GENERAL: No weight loss, malaise or fevers NECK: Negative for lumps, goiter, pain and significant neck swelling RESPIRATORY: Negative for cough, hemoptysis, wheezing, COPD, dyspnea or shortness of breath CARDIOVASCULAR: Negative for chest pain, leg swelling, hypertension, CHF or palpitations MUSCULOSKELETAL: no gout flares. NEURO: No history of headaches, syncope, paralysis, seizures or tremors EXAM: BP 132/82 (BP Site: Left Arm, BP Position: Sitting, BP Cuff Size: Regular Adult) Pulse 64 Wt 84.8 kg (187 lb) BMI 25.36 kg/m? Last 5 Encounter Wt Readings: Date: Wt: 08/31/2023 84.8 kg (187 lb) 02/23/2023 88.5 kg (195 lb) 12/31/2022 87.5 kg (193 lb) 06/23/2022 88 kg (194 lb) 02/22/2022 70.8 kg (156 lb) General Appearance: Well appearing, alert, in no acute distress, well-hydrated, well nourished.. Neck: Supple, no adenopathy; thyroid symmetric, normal size, no bruits. Lungs: Lungs clear to auscultation. No wheezing, rhonchi, rales.. Heart: RRR without murmur, gallop, or rubs. No ectopy. Abdomen: Normal abdominal exam, Abdomen soft, non-tender. Bowel sounds normal. No masses, organomegaly. E (more content not included)... [facility] 08-31-2023 History of Present illness Narrative Chief Complaint Patient presents with: F/U 6 months HPI Indra Guzmán is a 52 year old male who presents here today for 6 month follow up. Patient with Hx of HTN, Hyperlipidemia, allergic rhinitis, ex-smoker, gout as well as those reviewed and addressed below and in ROS. Patient had a ER visit back in May 2023 and was intoxicated. He admits that this may have contributed to the episode back in 06/23/2022 where he was unable to identify the year or the time. In the ER had difficulty giving the Nursing his and SS #. He was drinking then. He has not had a drink since just prior to . He is also going to 180. He is not in another relationship. His marriage has had difficulty for years. His Twins are seniors this year. Any recent ER/hospital visits? None Any new concerns today? None Past medical history, appointments, medications, allergies reviewed. 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 Alcohol level was 276 normal CTA head/neck Allergic rhinitis 12/12/2014 ASD (atrial septal defect) 07/03/2013 Congenital heart disease, adult 07/12/2016 Persistent foramen ovale-surgically closed October, Drug-induced hypersensitivity reaction 07/12/2013 Essential hypertension, benign 07/12/2013 Ex-smoker 04/02/2021 Started age 20, up to 1/2 PPD and quit around age 27 Gout 03/22/2012 History of COVID-19 12/31/202206/2022 Hyperlipidemia, mixed 02/17/2011 Lipoma of neck 02/23/2023 Left posterior YAEL (obstructive sleep apnea) 02/10/2023 [facility] Paroxysmal atrial fibrillation (HCC) 07/12/2013 resolved PFO (patent foramen ovale) 07/03/2013 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 linsey cyst right back TONSILLECTOMY HX Family History FAMILY HISTORY Problem Relation Age of Onset Lipids Mother Lipids Father Hypertension Father Coronary Artery Disease Father 67 [place] Lipids Brother None Brother Coronary Artery Disease Paternal Grandfather of [place] 52 Patient Allergies ALLERGIES Allergen Reactions Hernandez Inhibitors Hives Current Medications Current Outpatient Medications on File Prior to Visit Medication Sig allopurinol (ZYLOPRIM) 100 mg tablet Take 2 tablets by mouth once daily. For gout. metoprolol succinate ER (TOPROL XL) 50 mg 24 hr tablet Take 1 tablet by mouth once daily. dupilumab (DUPIXENT) 300 mg/2 mL pen amLODIPine (NORVASC) 10 mg tablet Take 1 tablet by mouth once daily. hydroCHLOROthiazide 25 mg tablet Take 1 tablet by mouth once daily. simvastatin (ZOCOR) 20 mg tablet Take 1 tablet by mouth daily at bedtime. montelukast (SINGULAIR) 10 mg tablet Take 1 tablet by mouth daily at bedtime. fluticasone (FLONASE) 50 mcg/actuation nasal spray Use 2 Sprays in each nostril once daily. Rinse mouth after use. cetirizine (ZYRTEC) 10 mg tablet Take 10 mg by mouth once daily. Fluocinolone Acetonide 0.01 % external oil Apply 1 application to affected area twice daily as needed. No current facility-administered medications on file prior to visit. Social History Social History Tobacco Use Smoking status: Former Smokeless tobacco: Never Tobacco comments: quit 1997 Substance Use Topics Alcohol use: Yes Drug use: No Review of Symptoms REVIEW OF SYSTEMS GENERAL: No weight loss, malaise or fevers NECK: Negative for lumps, goiter, pain and significant neck swelling RESPIRATORY: Negative for cough, hemoptysis, wheezing, COPD, dyspnea or shortness of breath CARDIOVASCULAR: Negative for chest pain, leg swelling, hypertension, CHF or palpitations MUSCULOSKELETAL: no gout flares. NEURO: No history of headaches, syncope, paralysis, seizures or tremors EXAM: BP 132/82 (BP Site: Left Arm, BP Position: Sitting, BP Cuff Size: Regular Adult) Pulse 64 Wt 84.8 kg (187 lb) BMI 25.36 kg/m Last 5 Encounter Wt Readings: Date: Wt: 08/31/2023 84.8 kg (187 lb) 02/23/2023 88.5 kg (195 lb) 12/31/2022 87.5 kg (193 lb) 06/23/2022 88 kg (194 lb) 02/22/2022 70.8 kg (156 lb) General Appearance: Well appearing, alert, in no acute distress, well-hydrated, well nourished.. Neck: Supple, no adenopathy; thyroid symmetric, normal size, no bruits. Lungs: Lungs clear to auscultation. No wheezing, rhonchi, rales.. Heart: RRR without murmur, gallop, or rubs. No ectopy. Abdomen: Normal abdominal exam, Abdomen soft, non-tender. Bowel sounds normal. No masses, organomegaly. Extremities: No deformities, edema, skin discoloration, clubbing or cyanosis. Good capillary refill. . Peripheral Pulses: Normal. Neurologic: Gait normal. Sensation grossly intact.. Health Maintenance List Colorectal Cancer Screening Never done BP Controlled (<130/80) due on 02/13/2019 Covid-19 Vaccine( season) due on 03/04/2023 Depression Assessment Never done Shingrix Vaccine(1 of 2) due on 02/24/2024 Annual PCP Team Chronic Disease Visit due on 02/24/2024 Diabetes Screening due on 04/20/2026 Lipid Screening due on 04/20/2028 DTaP,Tdap,Td Vaccine(3 - Td or Tdap) due on 02/23/2033 Influenza Vaccine Completed Hepatitis B Vaccine Discontinued Hepatitis C Screening Discontinued HIV Screening Discontinued Data reviewed Component Latest Ref Rng & Units 04/20/2023 NA 136 - 145 mmol/L 139 K 3.5 - 5.1 mmol/L 4.0 Chloride 98 - 107 MEQ/L 104 CO2 21 - 32 MEQ/L 30 Glucose 74 - 106 MG/DL 104 BUN 7 - 18 MG/DL 10 Creatinine 0.6 - 1.3 MG/DL 0.91 GFR mL/MIN 93 GFR AFR AMER mL/MIN 113 Total Protein 6.4 - 8.2 gm/dL 8.1 Albumin 3.2 - 4.6 gm/dL 3.7 Calcium 8.5 - 10.1 mg/dL 8.9 Bili Total 0.2 - 1 mg/dL 0.6 AST 8 - 37 U/L 28 ALT (SGPT) 12 - 78 U/L 37 Alk Phos Total 45 - 117 U/L 111 Phosphorus 3.5 WBC 3.4 - 10.8 K/uL 4.7 RBC 4.14 - 5.80 M/uL 4.53 Hemoglobin 12.6 - 17.7 g/dL 13.7 Hematocrit 37.5 - 51.0 % 41.9 MCV 79 - 97 fL 92.5 MCH 26.6 - 33 Pg 30.2 MCHC 31.5 - 35.7 g/dL 32.7 RDW 12.3 - 15.4 % 14.4 Platelet Count 150 - 379 k/uL 268 Neutrophil % % 52.2 Lymphocyte % % 30.1 Monocyte % % 13.8 Eosinophil % % 2.2 Basophil % % 1.3 NEUTROPHILS ABSOLUTE 1.4 - 7.0 k/uL 2.4 LYMPHS ABSOLUTE 0.7 - 3.1 k/uL 1.4 Cholesterol, Total 200 221 (A) Triglyceride 150 150 HDL CHOLESTEROL 40 77 (A) LDL CHOLESTEROL 130 114 Hemoglobin A1C 0 - 5.7 % 5.4 PSA. 0 - 4 6.93 (A) A/P ASSESSMENT/PLAN: 1. Essential hypertension, benign - ICD9: 401.1, ICD10: I10 (primary diagnosis) - Controlled - Continue current medications - Recommend home blood pressure monitoring, to bring results to next visit - Encouraged sodium restriction, DASH or Mediterranean diet - Recommend regular aerobic exercise - URINALYSIS, WITH MICROSCOPIC 2. Hyperlipidemia with target LDL less than 100 - ICD9: 272.4, ICD10: E78.5 - Controlled - Continue current medications - Counseled on healthy diet and regular exercise - SIMVASTATIN 20 MG TABLET - URINALYSIS, WITH MICROSCOPIC 3. Hyperlipidemia, mixed - ICD9: 272.2, ICD10: E78.2 - Controlled - Continue current medications - Counseled on healthy diet and regular exercise 4. Chronic gout without tophus, unspecified cause, unspecified site - ICD9: 274.02, ICD10: M1A.9XX0 - controlled with Tx. 5. YAEL (obstructive sleep apnea) - ICD9: 327.23, ICD10: G47.33 - wearing CPAP and seeing sleep med. 6. Seasonal allergic rhinitis due to other allergic trigger - ICD9: 477.8, ICD10: J30.89 Cont - MONTELUKAST 10 MG TABLET 7. Microscopic hematuria - ICD9: 599.72, ICD10: R31.29 Recheck - URINALYSIS, WITH MICROSCOPIC 8. Alcohol abuse - ICD9: 305.00, ICD10: F10.10 - patient in 180 and has not drank since 2022. 9. Elevated PSA - ICD9: 790.93, ICD10: R97.20 Check - PSA FREE 10. Marital dysfunction - ICD9: V61.10, ICD10: Z63.0 - talking with counselor. Requested Prescriptions Signed Prescriptions Disp Refills metoprolol succinate ER (TOPROL XL) 50 mg 24 hr tablet 90 tablet 1 Sig: Take 1 tablet by mouth once daily. amLODIPine (NORVASC) 10 mg tablet 90 tablet 1 Sig: Take 1 tablet by mouth once daily. montelukast (SINGULAIR) 10 mg tablet 90 tablet 1 Sig: Take 1 tablet by mouth daily at bedtime. simvastatin (ZOCOR) 20 mg tablet 90 tablet 1 Sig: Take 1 tablet by mouth daily at bedtime. hydroCHLOROthiazide 25 mg tablet 90 tablet 1 Sig: Take 1 tablet by mouth once daily. allopurinol (ZYLOPRIM) 100 mg tablet 180 tablet 1 Sig: Take 2 tablets by mouth once daily. For gout. F/u 6 months WAE check CMP. Lipid, UA, A1c, PSA, Uric Acid prior Indra Fabian MD documented in this encounter [facility] 05-05-2023 Note HNO ID: [id number] Author: Robinson Lim LPN Service: ? Author Type: ? Type: Progress Notes Filed: 05/05/2023 1:40 PM Note Text: Scan on 05/05/2023 7:20 AM by Provider, External, PAJohnC: Consultation - Pulmonary [facility] 02-23-2023 Nurse Note True BP 166/97 65 169/100 169/99 170/97 163/98 159/94 documented in this encounter [facility] 02-23-2023 Note HNO ID: [id number] Author: Indra Fabian MD Service: ? Author Type: Physician Type: Progress Notes Filed: 02/24/2023 9:16 AM Note Text: Chief Complaint Patient presents with: Physical HPI Indra Guzmán is a 52 year old male who presents here today for Physical. Office visit - physical 02/23/2023 Patient with Hx of HTN, Hyperlipidemia, allergic rhinitis, ex-smoker, gout as well as those reviewed and addressed below and in ROS. Patient has been doing ok. No new issues or concerns. Patient is to go and have a sleep study to get set up with Tx. He has had another few episodes of disorientation since last seeing me. Office visit follow up 12/2022 Patient had COVID back in June and was hospitalized. Since then he has had trouble sleeping. He will fall asleep at 5 or 6 in the evening and then up multiple times during the night. Patient also has been very fatigued. Patient does snore and per sounds like he has apnea spells. Since COVID he has been having spells where he may say something and not remember it the next day. One episode per : patient was in the chair in the evening an woke him up to come up stairs to sleep. After a period of time she went to check on him he had walked out of the house and locked the door behind himself. She went out after him and he said he was walking the dogs but he had no dogs. There are times where his speech is incoherent or slurred. Per when he is this way his speech does not speed up. These all seemed to be in the later evening. A lot of times falls asleep in a living room chair after 5-6 PM. He is falling asleep easily even during car rides. Family and co-worker's have noted easy agitation. Does not feel anxious, depressed, blue or tearful. These episodes of confusion and forgetfulness are just like the night he was in the ER for the COVID. Since COVID he has had more headache's. No family Hx of thyroid disease. Also mentioned that apparently he is saying or doing things that he doesn't remember. Blood pressure was 150/102. Office visit - physical 02/2022 Patient with Hx of HTN, Hyperlipidemia, allergic rhinitis, ex-smoker, gout as well as those reviewed and addressed below and in ROS. Past medical history, appointments, medications, allergies reviewed. 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 Persistent foramen ovale-surgically closed October, Drug-induced hypersensitivity reaction 07/12/2013 Essential hypertension, benign 07/12/2013 Ex-smoker 04/02/2021 Started age 20, up to 1/2 PPD and quit around age 27 Gout 03/22/2012 History of COVID-19 12/31/202206/2022 Hyperlipidemia, mixed 02/17/2011 YAEL (obstructive sleep apnea) 02/10/2023 [facility] Paroxysmal atrial fibrillation (HCC) 07/12/2013 resolved PFO (patent foramen ovale) 07/03/2013 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 linsey cyst right back TONSILLECTOMY HX Family History FAMILY HISTORY Problem Relation Age of Onset Lipids Mother Lipids Father Hypertension Father Coronary Artery Disease Father 67 [place] Lipids Brother None Brother Coronary Artery Disease Paternal Grandfather of [place] 52 Patient Allergies ALLERGIES Allergen Reactions Hernandez Inhibitors Hives Current Medications Current Outpatient Medications on File Prior to Visit Medication Sig montelukast (SINGULAIR) 10 mg tablet Take 1 tablet by mouth daily at bedtime. amLODIPine (NORVASC) 10 mg tablet Take 1 tablet by mouth once daily. hydroCHLOROthiazide 25 mg tablet Take 1 tablet by mouth once daily. metoprolol succinate ER (TOPROL XL) 25 mg 24 hr tablet Take 1 tablet by mouth once daily. allopurinol (ZYLOPRIM) 100 mg tablet Take 1 tablet by mouth once daily. For gout. simvastatin (ZOCOR) 20 mg tablet Take 1 tablet by mouth daily at bedtime. fluticasone (FLONASE) 50 mcg/actuation nasal spray Use 2 Sprays in each nostril once daily. Rinse mouth after use. cetirizine (ZYRTEC) 10 mg tablet Take 10 mg by mouth once daily. Fluocinolone Acetonide 0.01 % external oil Apply 1 application to affected area twice daily as needed. No current facility-administered medications on file prior to visit. Social History Social History Tobacco Use Smoking status: Former Smokeless tobacco: Never Tobacco comments: quit 1997 Substance Use Topics Alcohol use: Yes Drug use: No Review of Symptoms REVIEW OF SYSTEMS GENERAL: No weight loss, malaise or fevers HEENT: Negative for frequent or significant headaches, No changes in hearing o (more content not included)... [facility] 02-23-2023 Instructions Indra Fabian MD - 02/23/2023 5:05 PM EDT If you want to get the shingrix vaccine for the prevention of shingles check to see if cover by insurance and can you get it at your physician's office. documented in this encounter [facility] 02-23-2023 History of Present illness Narrative Chief Complaint Patient presents with: Physical HPI Indraluis fernando Guzmán is a 52 year old male who presents here today for Physical. Office visit - physical 02/23/2023 Patient with Hx of HTN, Hyperlipidemia, allergic rhinitis, ex-smoker, gout as well as those reviewed and addressed below and in ROS. Patient has been doing ok. No new issues or concerns. Patient is to go and have a sleep study to get set up with Tx. He has had another few episodes of disorientation since last seeing me. Office visit follow up 12/2022 Patient had COVID back in June and was hospitalized. Since then he has had trouble sleeping. He will fall asleep at 5 or 6 in the evening and then up multiple times during the night. Patient also has been very fatigued. Patient does snore and per sounds like he has apnea spells. Since COVID he has been having spells where he may say something and not remember it the next day. One episode per : patient was in the chair in the evening an woke him up to come up stairs to sleep. After a period of time she went to check on him he had walked out of the house and locked the door behind himself. She went out after him and he said he was walking the dogs but he had no dogs. There are times where his speech is incoherent or slurred. Per when he is this way his speech does not speed up. These all seemed to be in the later evening. A lot of times falls asleep in a living room chair after 5-6 PM. He is falling asleep easily even during car rides. Family and co-worker's have noted easy agitation. Does not feel anxious, depressed, blue or tearful. These episodes of confusion and forgetfulness are just like the night he was in the ER for the COVID. Since COVID he has had more headache's. No family Hx of thyroid disease. Also mentioned that apparently he is saying or doing things that he doesn't remember. Blood pressure was 150/102. Office visit - physical 02/2022 Patient with Hx of HTN, Hyperlipidemia, allergic rhinitis, ex-smoker, gout as well as those reviewed and addressed below and in ROS. Past medical history, appointments, medications, allergies reviewed. 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 Persistent foramen ovale-surgically closed October, Drug-induced hypersensitivity reaction 07/12/2013 Essential hypertension, benign 07/12/2013 Ex-smoker 04/02/2021 Started age 20, up to 1/2 PPD and quit around age 27 Gout 03/22/2012 History of COVID-19 12/31/202206/2022 Hyperlipidemia, mixed 02/17/2011 YAEL (obstructive sleep apnea) 02/10/2023 [facility] Paroxysmal atrial fibrillation (HCC) 07/12/2013 resolved PFO (patent foramen ovale) 07/03/2013 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 linsey cyst right back TONSILLECTOMY HX Family History FAMILY HISTORY Problem Relation Age of Onset Lipids Mother Lipids Father Hypertension Father Coronary Artery Disease Father 67 [place] Lipids Brother None Brother Coronary Artery Disease Paternal Grandfather of [place] 52 Patient Allergies ALLERGIES Allergen Reactions Hernandez Inhibitors Hives Current Medications Current Outpatient Medications on File Prior to Visit Medication Sig montelukast (SINGULAIR) 10 mg tablet Take 1 tablet by mouth daily at bedtime. amLODIPine (NORVASC) 10 mg tablet Take 1 tablet by mouth once daily. hydroCHLOROthiazide 25 mg tablet Take 1 tablet by mouth once daily. metoprolol succinate ER (TOPROL XL) 25 mg 24 hr tablet Take 1 tablet by mouth once daily. allopurinol (ZYLOPRIM) 100 mg tablet Take 1 tablet by mouth once daily. For gout. simvastatin (ZOCOR) 20 mg tablet Take 1 tablet by mouth daily at bedtime. fluticasone (FLONASE) 50 mcg/actuation nasal spray Use 2 Sprays in each nostril once daily. Rinse mouth after use. cetirizine (ZYRTEC) 10 mg tablet Take 10 mg by mouth once daily. Fluocinolone Acetonide 0.01 % external oil Apply 1 application to affected area twice daily as needed. No current facility-administered medications on file prior to visit. Social History Social History Tobacco Use Smoking status: Former Smokeless tobacco: Never Tobacco comments: quit 1997 Substance Use Topics Alcohol use: Yes Drug use: No Review of Symptoms REVIEW OF SYSTEMS GENERAL: No weight loss, malaise or fevers HEENT: Negative for frequent or significant headaches, No changes in hearing or vision, no nose bleeds or other nasal problems NECK: Negative for lumps, goiter, pain and significant neck swelling RESPIRATORY: Negative for cough, hemoptysis, wheezing, COPD, dyspnea or shortness of breath CARDIOVASCULAR: Negative for chest pain, increased leg swelling, hypertension, CHF or palpitations GI: No nausea, vomiting, or diarrhea, No heartburn or reflux symptoms, and no blood : No history of dysuria, frequency or blood MUSCULOSKELETAL: Negative for joint pain or swelling, back pain or muscle pain SKIN: Negative for lesions, rash, and itching PSYCH: Negative for sleep disturbance, mood disorder and recent psychosocial stressors HEMATOLOGY/LYMPHOLOGY: Negative for prolonged bleeding, bruising easily or swollen nodes ENDOCRINE: Negative for cold or heat intolerance, polyuria, polydipsia and goiter NEURO: No history of headaches, syncope, paralysis, seizures or tremors EXAM: BP 150/92 (BP Site: Left Arm, BP Position: Sitting, BP Cuff Size: Regular Adult) Pulse 76 Resp 16 Wt 88.5 kg (195 lb) BMI 26.45 kg/m BP 166/97 Pulse 65 Resp 16 Wt 195 lb (88.5 kg) BMI 26.45 kg/m Last 5 Encounter Wt Readings: Date: Wt: 02/23/2023 88.5 kg (195 lb) 12/31/2022 87.5 kg (193 lb) 06/23/2022 88 kg (194 lb) 02/22/2022 70.8 kg (156 lb) 04/02/2021 78 kg (172 lb) General Appearance: Well appearing, alert, in no acute distress, well-hydrated, well nourished.. Skin: Skin color, texture, turgor normal, no suspicious rashes or lesions. Lipoma on left posterior neck stable. Head: Normocephalic, no masses, lesions, tenderness or abnormalities. Eyes: Anicteric sclera. Pupils are equally round and reactive to light. Extraocular movements are intact. . Ears: External ears, TM's normal, canals clear. Nose/Sinuses: Nares normal, septum midline, mucosa normal, no drainage or sinus tenderness. Oropharynx: Lips, mucosa, and tongue normal, teeth and gums normal, oropharynx normal. Neck: Supple, no adenopathy; thyroid symmetric, normal size, no bruits. Lungs: Lungs clear to auscultation. No wheezing, rhonchi, rales.. Heart: RRR without murmur, gallop, or rubs. No ectopy. Abdomen: Normal abdominal exam, Abdomen soft, non-tender. Bowel sounds normal. No masses, organomegaly. Extremities: No deformities, edema, skin discoloration, c Good capillary refill. . Musculoskeletal: Spine range of motion normal. Muscular strength intact, No joint swelling, deformity, or tenderness. Peripheral Pulses: Normal. Neurologic: Gait normal. Reflexes normal and symmetric. Sensation to light touch and crainal nerves 2-12 intact.. Genitalia: Normal, Penis normal. No urethral discharge. Scrotum normal to palpation. No hernia.. Rectal: Normal exam. Health Maintenance List COLORECTAL CANCER SCREENING Never done BP CONTROLLED (<130/80) due on 02/13/2019 COVID-19 VACCINE(4 - Moderna series) due on 07/10/2021 DEPRESSION ASSESSMENT Never done SHINGRIX VACCINE(1 of 2) Never done DTAP,TDAP,TD(2 - Td or Tdap) due on 12/01/2022 INFLUENZA(1) due on 03/04/2023 ANNUAL PCP TEAM CHRONIC DISEASE VISIT due on 01/01/2024 DIABETES SCREEN due on 01/11/2026 LIPID SCREEN due on 02/22/2027 HEPATITIS B Discontinued HEPATITIS C SCREENING Discontinued HIV SCREENING Discontinued Data reviewed Component Latest Ref Rng & Units 01/11/2023 WBC 3.4 - 10.8 K/uL 5.2 RBC 4.14 - 5.80 M/uL 4.42 Hemoglobin 12.6 - 17.7 g/dL 13.1 Hematocrit 37.5 - 51.0 % 40.7 MCV 79 - 97 fL 92.1 MCH 26.6 - 33 Pg 29.6 MCHC 31.5 - 35.7 g/dL 32.2 RDW 12.3 - 15.4 % 13.4 Platelet Count 150 - 379 k/uL 270 Neutrophil % % 56 Lymphocyte % % 27.3 Monocyte % % 13.4 Eosinophil % % 2.3 Basophil % % 0.8 NEUTROPHILS ABSOLUTE 1.4 - 7.0 k/uL 2.9 LYMPHS ABSOLUTE 0.7 - 3.1 k/uL 1.42 NA 136 - 145 mmol/L 139 K 3.5 - 5.1 mmol/L 3.7 Chloride 98 - 107 MEQ/L 104 CO2 21 - 32 MEQ/L 28 Glucose 74 - 106 MG/DL 97 BUN 7 - 18 MG/DL 12 Creatinine 0.6 - 1.3 MG/DL 1.02 GFR mL/MIN 82 GFR AFR AMER mL/MIN 99 Total Protein 6.4 - 8.2 gm/dL 7.8 Albumin 3.2 - 4.6 gm/dL 3.7 Calcium 8.5 - 10.1 mg/dL 8.8 Bili Total 0.2 - 1 mg/dL 0.6 AST 8 - 37 U/L 33 ALT (SGPT) 12 - 78 U/L 37 Alk Phos Total 45 - 117 U/L 112 TSH 0.358 - 3.74 IU/ml 1.14 Free T4 0.76 - 1.46 0.92 A/P ASSESSMENT/PLAN: 1. Well adult exam - ICD9: V70.0, ICD10: Z00.00 (primary diagnosis) - Counseled on healthy diet and regular exercise - Patient was counseled [id number] by myself (the billing provider) for the following immunizations and vaccine components, including side effects: TdaP. Patient consents for immunization and understands risks and benefits. A VIS sheet on each immunization was given to the patient. - Follow up for annual exam in one year - HGB A1C - PSA/PROSTSPECAG DIAG 2. Hyperlipidemia with target LDL less than 100 - ICD9: 272.4, ICD10: E78.5 - await labs - Continue current medications - Counseled on healthy diet and regular exercise - SIMVASTATIN 20 MG TABLET 3. Essential hypertension, benign - ICD9: 401.1, ICD10: I10 - Uncontrolled - Continue current medications - Increase metoprolol succinate to 50 mg a day. - Recommend home blood pressure monitoring, to bring results to next visit - Encouraged sodium restriction, DASH or Mediterranean diet - Recommend regular aerobic exercise - f/u 4 weeks HTN med check - LIPID PANEL, NONFASTING 4. Hyperlipidemia, mixed - ICD9: 272.2, ICD10: E78.2 - as above - LIPID PANEL, NONFASTING 5. Chronic gout without tophus, unspecified cause, unspecified site - ICD9: 274.02, ICD10: M1A.9XX0 - no changes check uric acid 6. YAEL (obstructive sleep apnea) - ICD9: 327.23, ICD10: G47.33 - seeing sleep med 7. Screening for colon cancer - ICD9: V76.51, ICD10: Z12.11 Check - FECAL OCCULT BLOOD TEST 8. Encounter for immunization - ICD9: V03.89, ICD10: Z23 - TDAP VACCINE, AGE 7+ YR (ADACEL, BOOSTRIX) 9. Encounter for screening for diabetes mellitus - ICD9: V77.1, ICD10: Z13.1 Check - HGB A1C 10. Screening for prostate cancer - ICD9: V76.44, ICD10: Z12.5 Check - PSA/PROSTSPECAG DIAG 11. 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 Requested Prescriptions Signed Prescriptions Disp Refills amLODIPine (NORVASC) 10 mg tablet 90 tablet 1 Sig: Take 1 tablet by mouth once daily. hydroCHLOROthiazide 25 mg tablet 90 tablet 1 Sig: Take 1 tablet by mouth once daily. metoprolol succinate ER (TOPROL XL) 25 mg 24 hr tablet 90 tablet 1 Sig: Take 1 tablet by mouth once daily. simvastatin (ZOCOR) 20 mg tablet 90 tablet 1 Sig: Take 1 tablet by mouth daily at bedtime. allopurinol (ZYLOPRIM) 100 mg tablet 90 tablet 1 Sig: Take 1 tablet by mouth once daily. For gout. F/u 6 months routine. F/u 4 weeks HTN med check Indra Fabian MD documented in this encounter [facility] 02-10-2023 Note HNO ID: [id number] Author: Robinson Lim LPN Service: ? Author Type: ? Type: Progress Notes Filed: 02/10/2023 4:03 PM Note Text: Scan on 02/10/2023 10:03 AM by ProviderWilliam PA-C: Consultation - Pulmonary [facility] 02-10-2023 History of Present illness Narrative Scan on 02/10/2023 10:03 AM by Provider, William PA-C: Consultation - Pulmonary documented in this encounter [facility] 02-09-2023 Miscellaneous Notes Teena from [facility] asking for copy of last office visit to be faxed to [phone]. Patient has appt tomorrow. Printed notes from 12/2022 and faxed as requested. documented in this encounter [facility] 02-09-2023 Miscellaneous Notes Noted. Last Tuesday spoke to office directly and advised patient to f/u with any provider. Called sleep center at [facility] again and Spoke to Leana she advised Dr. Razo is the only provider who is scheduled into July due to being at multiple locations. Advised for patient to follow up with any sleep med provider available again DOES NOT need to be Dr. Razo who interpreted sleep study. Leana apologized and advised they have staff out so multiple people doing things and its becoming more of a mess. Leana will call patient to schedule him with sleep/pulmonary since faster appointment will be made and they will handle autopap order Terri Hawkins Ma So we received this paper work last Tuesday and I had Terri call them to remind them I requested patient to be seen by one of the sleep med providers. I think she had to leave a message. The paper work they sent today said the interpreting provider was not able to see patient till July. I did not request it to the interpreting provider but any of them that took his insurance. Is this the same for all the providers? If so if I sign the order is the patient going to still see the sleep specialist for management or should I have the patient just be seen by one of ours? Received order for pt's Auto Pap at [facility]. Please fax back when completed to [phone]. Form on pcp's desk. Robinson Lim LPN documented in this encounter [facility] 02-04-2023 Miscellaneous Notes Scanned in sleep study results Spoke to sleep med at [facility] and they will call patient to schedule f/u with sleep med provider and do order through them Terri Hawkins Ma Please fax back request. I wrote on it that his order requested a consult with a sleep provider to review with patient and manage Tx. Patient sleep study results were faxed and they attached rx if wanting to do auto-pap Placed on desk to review Terri Hawkins Ma documented in this encounter [facility] 12-31-2022 Note HNO ID: [id number] Author: Indra Fabian MD Service: ? Author Type: Physician Type: Progress Notes Filed: 01/02/2023 6:39 PM Note Text: Chief Complaint Patient presents with: Follow Up HPI Indra Guzmán is a 52 year old male who presents here today for follow up regarding issues still remaining with COVID. Patient's is with him today for the visit. Office visit Patient had COVID back in June and was hospitalized. Since then he has had trouble sleeping. He will fall asleep at 5 or 6 in the evening and then up multiple times during the night. Patient also has been very fatigued. Patient does snore and per sounds like he has apnea spells. Since COVID he has been having spells where he may say something and not remember it the next day. One episode per : patient was in the chair in the evening an woke him up to come up stairs to sleep. After a period of time she went to check on him he had walked out of the house and locked the door behind himself. She went out after him and he said he was walking the dogs but he had no dogs. There are times where his speech is incoherent or slurred. Per when he is this way his speech does not speed up. These all seemed to be in the later evening. A lot of times falls asleep in a living room chair after 5-6 PM. He is falling asleep easily even during car rides. Family and co-worker's have noted easy agitation. Does not feel anxious, depressed, blue or tearful. These episodes of confusion and forgetfulness are just like the night he was in the ER for the COVID. Since COVID he has had more headache's. No family Hx of thyroid disease. Also mentioned that apparently he is saying or doing things that he doesn't remember. Blood pressure was 150/102. Past medical history, appointments, medications, allergies reviewed. 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 Persistent foramen ovale-surgically closed October, Drug-induced hypersensitivity reaction 07/12/2013 Essential hypertension, benign 07/12/2013 Ex-smoker 04/02/2021 Started age 20, up to 1/2 PPD and quit around age 27 Gout 03/22/2012 Hyperlipidemia, mixed 02/17/2011 Paroxysmal atrial fibrillation (HCC) 07/12/2013 resolved PFO (patent foramen ovale) 07/03/2013 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 linsey cyst right back TONSILLECTOMY HX Family History FAMILY HISTORY Problem Relation Age of Onset Lipids Mother Lipids Father Hypertension Father Coronary Artery Disease Father 67 [place] Lipids Brother None Brother Coronary Artery Disease Paternal Grandfather of [place] 52 Patient Allergies ALLERGIES Allergen Reactions Hernandez Inhibitors Hives Current Medications Current Outpatient Medications on File Prior to Visit Medication Sig allopurinol (ZYLOPRIM) 100 mg tablet Take 1 tablet by mouth once daily. For gout. montelukast (SINGULAIR) 10 mg tablet Take 1 tablet by mouth daily at bedtime. simvastatin (ZOCOR) 20 mg tablet Take 1 tablet by mouth daily at bedtime. amLODIPine (NORVASC) 10 mg tablet Take 1 tablet by mouth once daily. hydroCHLOROthiazide (HYDRODIURIL, ESIDRIX) 25 mg tablet Take 1 tablet by mouth once daily. fluticasone (FLONASE) 50 mcg/actuation nasal spray Use 2 Sprays in each nostril once daily. Rinse mouth after use. Ciclopirox (LOPROX) 8 % solution Apply to affected area daily at bedtime. For a week. Then clean off with nail lao remover and repeat process weekly cetirizine (ZYRTEC) 10 mg tablet Take 10 mg by mouth once daily. Fluocinolone Acetonide 0.01 % external oil Apply 1 application to affected area twice daily as needed. No current facility-administered medications on file prior to visit. Social History Social History Tobacco Use Smoking status: Former Smokeless tobacco: Never Tobacco comments: quit 1997 Substance Use Topics Alcohol use: Yes Drug use: No Review of Symptoms REVIEW OF SYSTEMS See HPI EXAM: BP 134/94 Pulse 76 Resp 16 Wt 87.5 kg (193 lb) SpO2 100% BMI 26.18 kg/m? BP 134/94 Pulse 76 Resp 16 Wt 87.5 kg (193 lb) SpO2 100% BMI 26.18 kg/m? BP 142/94 Pulse 76 Resp 16 Wt 87.5 kg (193 lb) SpO2 100% BMI 26.18 kg/m? General Appearance: Well appearing, alert, in no acute distress, well-hydrated, well nourished.. Eyes: Anicteric sclera. Pupils are equally round and reactive to light. Extraocular movements are intact. . Neck: Supple, no adenopathy; thyroid symmetric, normal size, no bruits. Lungs: Lungs clear to auscultation. No (more content not included)... [facility] 12-31-2022 History of Present illness Narrative Chief Complaint Patient presents with: Follow Up HPI Indra Guzmán is a 52 year old male who presents here today for follow up regarding issues still remaining with COVID. Patient's is with him today for the visit. Office visit Patient had COVID back in June and was hospitalized. Since then he has had trouble sleeping. He will fall asleep at 5 or 6 in the evening and then up multiple times during the night. Patient also has been very fatigued. Patient does snore and per sounds like he has apnea spells. Since COVID he has been having spells where he may say something and not remember it the next day. One episode per : patient was in the chair in the evening an woke him up to come up stairs to sleep. After a period of time she went to check on him he had walked out of the house and locked the door behind himself. She went out after him and he said he was walking the dogs but he had no dogs. There are times where his speech is incoherent or slurred. Per when he is this way his speech does not speed up. These all seemed to be in the later evening. A lot of times falls asleep in a living room chair after 5-6 PM. He is falling asleep easily even during car rides. Family and co-worker's have noted easy agitation. Does not feel anxious, depressed, blue or tearful. These episodes of confusion and forgetfulness are just like the night he was in the ER for the COVID. Since COVID he has had more headache's. No family Hx of thyroid disease. Also mentioned that apparently he is saying or doing things that he doesn't remember. Blood pressure was 150/102. Past medical history, appointments, medications, allergies reviewed. 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 Persistent foramen ovale-surgically closed October, Drug-induced hypersensitivity reaction 07/12/2013 Essential hypertension, benign 07/12/2013 Ex-smoker 04/02/2021 Started age 20, up to 1/2 PPD and quit around age 27 Gout 03/22/2012 Hyperlipidemia, mixed 02/17/2011 Paroxysmal atrial fibrillation (HCC) 07/12/2013 resolved PFO (patent foramen ovale) 07/03/2013 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 linsey cyst right back TONSILLECTOMY HX Family History FAMILY HISTORY Problem Relation Age of Onset Lipids Mother Lipids Father Hypertension Father Coronary Artery Disease Father 67 [place] Lipids Brother None Brother Coronary Artery Disease Paternal Grandfather of [place] 52 Patient Allergies ALLERGIES Allergen Reactions Hernandez Inhibitors Hives Current Medications Current Outpatient Medications on File Prior to Visit Medication Sig allopurinol (ZYLOPRIM) 100 mg tablet Take 1 tablet by mouth once daily. For gout. montelukast (SINGULAIR) 10 mg tablet Take 1 tablet by mouth daily at bedtime. simvastatin (ZOCOR) 20 mg tablet Take 1 tablet by mouth daily at bedtime. amLODIPine (NORVASC) 10 mg tablet Take 1 tablet by mouth once daily. hydroCHLOROthiazide (HYDRODIURIL, ESIDRIX) 25 mg tablet Take 1 tablet by mouth once daily. fluticasone (FLONASE) 50 mcg/actuation nasal spray Use 2 Sprays in each nostril once daily. Rinse mouth after use. Ciclopirox (LOPROX) 8 % solution Apply to affected area daily at bedtime. For a week. Then clean off with nail lao remover and repeat process weekly cetirizine (ZYRTEC) 10 mg tablet Take 10 mg by mouth once daily. Fluocinolone Acetonide 0.01 % external oil Apply 1 application to affected area twice daily as needed. No current facility-administered medications on file prior to visit. Social History Social History Tobacco Use Smoking status: Former Smokeless tobacco: Never Tobacco comments: quit 1997 Substance Use Topics Alcohol use: Yes Drug use: No Review of Symptoms REVIEW OF SYSTEMS See HPI EXAM: BP 134/94 Pulse 76 Resp 16 Wt 87.5 kg (193 lb) SpO2 100% BMI 26.18 kg/m BP 134/94 Pulse 76 Resp 16 Wt 87.5 kg (193 lb) SpO2 100% BMI 26.18 kg/m BP 142/94 Pulse 76 Resp 16 Wt 87.5 kg (193 lb) SpO2 100% BMI 26.18 kg/m General Appearance: Well appearing, alert, in no acute distress, well-hydrated, well nourished.. Eyes: Anicteric sclera. Pupils are equally round and reactive to light. Extraocular movements are intact. . Neck: Supple, no adenopathy; thyroid symmetric, normal size, no bruits. Lungs: Lungs clear to auscultation. No wheezing, rhonchi, rales.. Heart: RRR without murmur, gallop, or rubs. No ectopy. Abdomen: Normal abdominal exam, Abdomen soft, non-tender. Bowel sounds normal. No masses, organomegaly. Extremities: No deformities, edema, skin discoloration, Good capillary refill. . Peripheral Pulses: Normal. Neurologic: Gait normal. Reflexes normal and symmetric. Sensation to light touch and crainal nerves 2-12 intact.. Health Maintenance List COLORECTAL CANCER SCREENING Never done BP CONTROLLED (<130/80) due on 02/13/2019 COVID-19 VACCINE(4 - Booster for Moderna series) due on 07/10/2021 DEPRESSION ASSESSMENT Never done SHINGRIX VACCINE(1 of 2) Never done DTAP,TDAP,TD(2 - Td or Tdap) due on 12/01/2022 ANNUAL PCP TEAM CHRONIC DISEASE VISIT due on 06/23/2023 DIABETES SCREEN due on 02/22/2025 LIPID SCREEN due on 02/22/2027 INFLUENZA Completed HEPATITIS B Discontinued HEPATITIS C SCREENING Discontinued HIV SCREENING Discontinued Data reviewed MINI-MENTAL STATE EXAMINATION (MMSE) Make the patient comfortable and establish rapport. Ask questions in the order listed. Total possible score is 30. ORIENTATION 1. What is the (year) (season) (date) (day) (month)? Max score=5 Patient's score=5 2. Where are we? (state) (county) (town or city) (hospital) (floor)? Max score=5 Patient's score=5 REGISTRATION Ask the patient if you may test his/her memory. Then say the names of 3 unrelated objects, clearly and slowly, about one second for each (eg, apple, table, denise). After you have said all 3, ask him/her to repeat them. This first repetition determines the score(0-3), but keep saying them until he/she can repeat all 3, up to 6 trials. Max score=3 Patient's score=3 ATTENTION AND CALCULATION Ask the patient to begin with 100 and count backwards by 7. Stop after 5 subtractions (93, 86, 79, 72, 65). Score the total number of correct answers. If the patient cannot or will not perform the serial 7s task, ask him/her to spell the word WORLD backwards. The score is the number of letters in the correct order (eg, DLROW=5; DLRW=4; DLORW, DLW=3; OW=2; DRLWO=1). Max score=5 Patient's score=5 RECALL Ask the patient to recall the 3 items repeated above (eg, apple, table, denise). Max score=3 Patient's score=3 LANGUAGE Naming: Show the patient a wristwatch and ask him/her what it is. Repeat for pencil. Max score=2 Patient's score=2 Repetition: Ask the patient to repeat the phrase No ifs, ands, or buts: after you. Max score=1 Patient's score=1 3-Stage Command: Give the patient a piece of blank paper and ask him/her to take a piece of paper in your right hand, fold it in half, put it on the floor. Score 1 point for each part correctly executed. Max score=3 Patient's score=3 Reading: On a blank piece of paper, print the sentence CLOSE YOUR EYES in letters large enough for the patient to see clearly. Ask him/her to read it and do what it says. Score 1 point only if he/she actually closes his/her eyes. Max score=1 Patient's score=1 Writing: Give the patient a blank piece of paper and ask him/her to write a sentence. Do not dictate a sentence; it is to be written spontaneously. It must contain a subject and verb and be sensible. Correct grammar and punctuation are not necessary. Max score=1 Patient's score=1 Copying: Ask the patient to copy the figure of intersecting pentagons exactly as it is. All 10 angles must be present and 2 must intersect to form a 4-sided figure to score 1 point. Tremor and rotation are ignored. Max score=1 Patient's score=1 MAXIMUM TOTAL SCORE = 30 TOTAL SCORE = 30/30 Suggested guideline for determining the severity of cognitive impairment: Mild: MMSE>21 Moderate: MMSE 10-20 Severe: MMSE<9 Expected decline in MMSE scores in untreated mild to moderate Alzheimer's patient is 2 to 4 points per year. *Adapted from Folstein et al.1 and Daniel and Folstein2. (c) 1974, 1997 [employer] Used with permission. References: 1. Folstein MF, Folstein SE, [place]. Mini-Mental State: a practical method for grading the cognitive state of patients for the clinician. J Psychiatr Res. 1975; 12:189-198. 2. JR Daniel, Folstein MF, Mini-Mental State Examination (MMSE). Psychopharm Bull. 1988;24:689-692. 3. Liliana JT, Jerel FJ, Reyna RD, Jonny A, Calixto F. Neuropsychological function in Alzheimer's disease: pattern of impairment and rates of progression. Arch Neurol. 1988;45:263-268. 4. Irlanda DUPREE, Yesenia B, Juan S-P, Telly MIXON. Predictors of cognitive and functional progression in patients with probable Alzheimer's disease. Neurology. 1992;42:7064-1627. In ER back in Jun [address] of brain that was normal. He also had MRI/MRA brain and MRA of neck and were all ok. A/P ASSESSMENT/PLAN: 1. Snores - ICD9: 786.09, ICD10: R06.83 (primary diagnosis) Check SLEEP APNEA TEST (SAT) 2. Hypersomnolence - ICD9: 780.54, ICD10: G47.10 Check - SLEEP APNEA TEST (SAT) 3. History of COVID-19 - ICD9: V12.09, ICD10: Z86.16 4. Confusion - ICD9: 298.9, ICD10: R41.0 Check - COMP METABOLIC PANEL - TSH BLD - CBC + DIFF - T4 FREE/FREE THYROX - SYPHILIS TOTAL W/REFLEX - LYME AB LATE >30 DAYS SYMPTOMS - SLEEP APNEA TEST (SAT) Check sleep deprived EEG 5. Fatigue, unspecified type - ICD9: 780.79, ICD10: R53.83 Check - TSH BLD - CBC + DIFF - T4 FREE/FREE THYROX - SYPHILIS TOTAL W/REFLEX - LYME AB LATE >30 DAYS SYMPTOMS 6. Spells of decreased attentiveness - ICD9: 780.99, ICD10: R68.89 - will check sleep deprived EEG 7. Essential hypertension, benign - ICD9: 401.1, ICD10: I10 - Uncontrolled - Continue current medications - Start metoprolol succinate 25 mg a day - Recommend home blood pressure monitoring, to bring results to next visit - Encouraged sodium restriction, DASH or Mediterranean diet - Recommend regular aerobic exercise Cont - AMLODIPINE 10 MG TABLET - HYDROCHLOROTHIAZIDE 25 MG TABLET Requested Prescriptions Signed Prescriptions Disp Refills amLODIPine (NORVASC) 10 mg tablet 90 tablet 1 Sig: Take 1 tablet by mouth once daily. hydroCHLOROthiazide 25 mg tablet 90 tablet 1 Sig: Take 1 tablet by mouth once daily. metoprolol succinate ER (TOPROL XL) 25 mg 24 hr tablet 90 tablet 1 Sig: Take 1 tablet by mouth once daily. F/u in 4 weeks I spent a total of 54 minutes on the date of the service which included preparing to see the patient, [id number] patient care, completing clinical documentation, performing a medically appropriate examination, counseling and educating the patient/family/caregiver and ordering medications, tests, or procedures. Indra Fabian MD documented in this encounter [facility] 09-06-2022 Miscellaneous Notes The following approved medication requests have been transmitted electronically. Requested Prescriptions Signed Prescriptions Disp Refills allopurinol (ZYLOPRIM) 100 mg tablet 90 tablet 1 Sig: Take 1 tablet by mouth once daily. For gout. Authorizing Provider: INDRA FABIAN montelukast (SINGULAIR) 10 mg tablet 90 tablet 1 Sig: Take 1 tablet by mouth daily at bedtime. Authorizing Provider: INDRA FABIAN simvastatin (ZOCOR) 20 mg tablet 90 tablet 1 Sig: Take 1 tablet by mouth daily at bedtime. Authorizing Provider: INDRA FABIAN MD Patient has been identified by name and date of : Yes Requested Prescriptions Pending Prescriptions Disp Refills allopurinol (ZYLOPRIM) 100 mg tablet 90 tablet 1 Sig: Take 1 tablet by mouth once daily. For gout. montelukast (SINGULAIR) 10 mg tablet 90 tablet 1 Sig: Take 1 tablet by mouth daily at bedtime. simvastatin (ZOCOR) 20 mg tablet 90 tablet 1 Sig: Take 1 tablet by mouth daily at bedtime. RX INSTRUCTIONS: Patient aware RX will be sent to pharmacy. No need to notify patient. Jennifer Livingston MA Colin: 06/2022 Nov: 02/2023 Last refill: 02/2022 Pharmacy verified [facility] Patient has been identified by name and date of : Yes Patient aware RX will be sent to pharmacy. No need to notify patient. Patient phones for refill(s): Requested Prescriptions Pending Prescriptions Disp Refills allopurinol (ZYLOPRIM) 100 mg tablet 90 tablet 1 Sig: Take 1 tablet by mouth once daily. For gout. montelukast (SINGULAIR) 10 mg tablet 90 tablet 1 Sig: Take 1 tablet by mouth daily at bedtime. simvastatin (ZOCOR) 20 mg tablet 90 tablet 1 Sig: Take 1 tablet by mouth daily at bedtime. Date of last office visit : 06/23/2022 Date of next office visit : 02/23/2023 Last 2 Encounter Wt Readings: Date: Wt: 06/23/2022 88 kg (194 lb) 02/22/2022 70.8 kg (156 lb) Please advise. Ayesha Carlton Pss documented in this encounter [facility] 07-23-2022 Miscellaneous Notes Patient left vm on cell phone labs normal Terri Hawkins Ma Et patient know his electrolytes were ok. Scan on 07/22/2022 1:24 PM by External Provider: Chemistry Please review results and advise. Jennifer Livingston MA documented in this encounter [facility] 07-07-2022 Miscellaneous Notes Patient has been identified by name and date of : Yes Last office visit in this department: Visit date not found RX INSTRUCTIONS: Pharmacy initiated this request. No need to notify patient. Patient phones requesting refills as follows: Requested Prescriptions Pending Prescriptions Disp Refills amLODIPine (NORVASC) 10 mg tablet 90 tablet 1 Sig: Take 1 tablet by mouth once daily. Please review and advise. Brynn Villareal Pss documented in this encounter [facility] 06-23-2022 History of Present illness Narrative Chief Complaint Patient presents with: Hospital F/U HPI Indra Guzmán is a 51 year old male who presents here today for hospital follow up. Patient presented to [facility] on 06/15/2022 with mental status changes. He had been diagnosed wit COVID on 06/11/2022 and had been staying home and resting. Had had some headache's mainly occipital. The evening he went to the ER his had woken him up and he was unable to identify the year or the time. In the ER had difficulty giving the Nursing his and SS #. His BP was elevated initially at 160/100 and then came down to 140/80. CT of the head and labs were unremarkable. During admission patient's mental status improved and his potassium was replaced. An MRI/MRA of the head and neck were normal. It was felt he had viral induced encephalopathy. His BP was still elevated and at discharge his Norvasc was increased to 10 mg a day and his HCTZ was increased to 25 mg a day. Patient has been feeling fine since he has been home and has had no recurrence of the mental status issues. Patient was instructed by the hospitalist to stay off work and ok to return omn 06/21/2022. Patient needs FMLA forms completed for dates 06/11/2022-06/20/2022. Past medical history, appointments, medications, allergies reviewed. 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 Persistent foramen ovale-surgically closed October, Drug-induced hypersensitivity reaction 07/12/2013 Essential hypertension, benign 07/12/2013 Ex-smoker 04/02/2021 Started age 20, up to 1/2 PPD and quit around age 27 Gout 03/22/2012 Hyperlipidemia, mixed 02/17/2011 Paroxysmal atrial fibrillation (HCC) 07/12/2013 resolved PFO (patent foramen ovale) 07/03/2013 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 linsey cyst right back TONSILLECTOMY HX Family History FAMILY HISTORY Problem Relation Age of Onset Lipids Mother Lipids Father Hypertension Father Coronary Artery Disease Father 67 [place] Lipids Brother None Brother Coronary Artery Disease Paternal Grandfather of [place] 52 Patient Allergies ALLERGIES Allergen Reactions Hernandez Inhibitors Hives Current Medications Current Outpatient Medications on File Prior to Visit Medication Sig amLODIPine (NORVASC) 5 mg tablet Take 1 tablet by mouth once daily. allopurinol (ZYLOPRIM) 100 mg tablet Take 1 tablet by mouth once daily. For gout. montelukast (SINGULAIR) 10 mg tablet Take 1 tablet by mouth daily at bedtime. fluticasone (FLONASE) 50 mcg/actuation nasal spray Use 2 Sprays in each nostril once daily. Rinse mouth after use. simvastatin (ZOCOR) 20 mg tablet Take 1 tablet by mouth daily at bedtime. hydroCHLOROthiazide (HYDRODIURIL, ESIDRIX) 12.5 mg tablet Take 1 tablet by mouth once daily. Ciclopirox (LOPROX) 8 % solution Apply to affected area daily at bedtime. For a week. Then clean off with nail lao remover and repeat process weekly cetirizine (ZYRTEC) 10 mg tablet Take 10 mg by mouth once daily. Fluocinolone Acetonide 0.01 % external oil Apply 1 application to affected area twice daily as needed. No current facility-administered medications on file prior to visit. Social History Social History Tobacco Use Smoking status: Former Smokeless tobacco: Never Tobacco comments: quit 1997 Substance Use Topics Alcohol use: Yes Drug use: No Review of Symptoms REVIEW OF SYSTEMS GENERAL: No weight loss, malaise or fevers RESPIRATORY: Negative for cough, hemoptysis, wheezing, COPD, dyspnea or shortness of breath CARDIOVASCULAR: Negative for chest pain, leg swelling, hypertension, CHF or palpitations NEURO: No history of syncope, paralysis, seizures or tremors or abnormal thoughts. Has had an occasional mild headache. EXAM: BP 142/116 (BP Site: Right Arm, BP Position: Sitting, BP Cuff Size: Regular Adult) Pulse 76 Wt 88 kg (194 lb) BMI 26.31 kg/m BP 142/96 Pulse 76 Wt 88 kg (194 lb) BMI 26.31 kg/m Last 10 Encounter BP Readings: Date: BP: 06/23/2022 142/96 02/22/2022 140/88 04/02/2021 124/78 03/10/2021 118/80 03/28/2020 130/80 02/06/2019 108/72 02/13/2018 106/75 06/10/2017 146/102 04/01/2016 126/91[#6 (from Extended Vitals)[ 03/23/2016 128/94 General Appearance: Well appearing, alert, in no acute distress, well-hydrated, well nourished.. Neck: Supple, no adenopathy; thyroid symmetric, normal size, no bruits. Lungs: Lungs clear to auscultation. No wheezing, rhonchi, rales.. Heart: RRR without murmur, gallop, or rubs. No ectopy. Extremities: No deformities, edema, skin discoloration, Good capillary refill. . Health Maintenance List COLORECTAL CANCER SCREENING Never done BP CONTROLLED (<130/80) due on 02/13/2019 DEPRESSION ASSESSMENT Never done COVID-19 VACCINE(4 - Booster for Moderna series) due on 07/10/2021 DTAP,TDAP,TD(2 - Td or Tdap) due on 12/01/2022 ANNUAL PCP TEAM CHRONIC DISEASE VISIT due on 02/22/2023 DIABETES SCREEN due on 02/22/2025 LIPID SCREEN due on 02/22/2027 INFLUENZA Completed HEPATITIS B Discontinued HEPATITIS C SCREENING Discontinued HIV SCREENING Discontinued Data reviewed Hospital report and discharge summary from 06/15/2022 A/P ASSESSMENT/PLAN: 1. Essential hypertension, benign - ICD9: 401.1, ICD10: I10 (primary diagnosis) - suboptimal control - Continue current medication(s) - Recommended regular aerobic exercise. - Recommend home blood pressure monitoring, to bring results in on next visit - Follow up in 1 month for BP recheck. - Goal of BP <130/80 - AMLODIPINE 10 MG TABLET - HYDROCHLOROTHIAZIDE 25 MG TABLET - BASIC METABOLIC PNL 2. Encephalopathy due to COVID-19 virus - ICD9: 348.39, 079.89, ICD10: U07.1, G93.49 - resolved. FMLA papers will be completed and faxed and copy provided for patient. Requested Prescriptions Signed Prescriptions Disp Refills amLODIPine (NORVASC) 10 mg tablet 90 tablet 1 Sig: Take 1 tablet by mouth once daily. hydroCHLOROthiazide (HYDRODIURIL, ESIDRIX) 25 mg tablet 90 tablet 1 Sig: Take 1 tablet by mouth once daily. F/u 4 weeks HTN med check Indra Fabian MD documented in this encounter [facility] 11-23-2021 Miscellaneous Notes Left message that paperwork has been completed and taken to medical records. 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 Please make copy to scan into chart. Spoke to patient and FMLA is for his father Tiago Guzmán who is patient of yours as well. Father recently seen 11/16 hospital follow up for heart attack. Type of form: FMLA Form received via fax When form is completed, call patient to pick pulling machine tender Form has been forwarded to Physician Desk: Dr. Simi Hawkins Ma documented in this encounter [facility] documented as of this encounter (statuses as of 11/25/2021) [facility] History of Past illness Narrative* Problem Noted Date Resolved Date HERNANDEZ inhibitor-aggravated angioedema 07/12/2013 12/12/2014 Paroxysmal atrial fibrillation 07/12/2013 0 12/26/2013 PFO (patent foramen ovale) 07/03/201312/26 ASD (atrial septal defect) 07/03/201312/26 Renal infarction 07/03/2013 12/12/2014 Other and unspecified hyperlipidemia 04/26/2009 12/01/2012 documented as of this encounter (statuses as of 06/25/2022) [facility] History of Past illness Narrative* Problem Noted Date Resolved Date HERNANDEZ inhibitor-aggravated angioedema 07/12/2013 12/12/2014 Paroxysmal atrial fibrillation 07/12/2013 0 12/26/2013 PFO (patent foramen ovale) 07/03/201312/26 ASD (atrial septal defect) 07/03/201312/26 Renal infarction 07/03/2013 12/12/2014 Other and unspecified hyperlipidemia 04/26/2009 12/01/2012 documented as of this encounter (statuses as of 07/23/2022) [facility] History of Past illness Narrative* Problem Noted Date Resolved Date HERNANDEZ inhibitor-aggravated angioedema 07/12/2013 12/12/2014 Paroxysmal atrial fibrillation 07/12/2013 0 12/26/2013 PFO (patent foramen ovale) 07/03/201312/26 ASD (atrial septal defect) 07/03/201312/26 Renal infarction 07/03/2013 12/12/2014 Other and unspecified hyperlipidemia 04/26/2009 12/01/2012 documented as of this encounter (statuses as of 09/01/2022) [facility] History of Past illness Narrative* Problem Noted Date Resolved Date HERNANDEZ inhibitor-aggravated angioedema 07/12/2013 12/12/2014 Paroxysmal atrial fibrillation 07/12/2013 0 12/26/2013 PFO (patent foramen ovale) 07/03/201312/26 ASD (atrial septal defect) 07/03/201312/26 Renal infarction 07/03/2013 12/12/2014 Other and unspecified hyperlipidemia 04/26/2009 12/01/2012 documented as of this encounter (statuses as of 09/07/2022) [facility] History of Past illness Narrative* Problem Noted Date Resolved Date HERNANDEZ inhibitor-aggravated angioedema 07/12/2013 12/12/2014 Paroxysmal atrial fibrillation 07/12/2013 0 12/26/2013 PFO (patent foramen ovale) 07/03/201312/26 ASD (atrial septal defect) 07/03/201312/26 Renal infarction 07/03/2013 12/12/2014 Other and unspecified hyperlipidemia 04/26/2009 12/01/2012 documented as of this encounter (statuses as of 01/02/2023) [facility] History of Past illness Narrative* Problem Noted Date Diagnosed Date Resolved Date HERNANDEZ inhibitor-aggravated angioedema 07/12/2013 12/12/2014 Paroxysmal atrial fibrillation 07/12/2013 12/26/2013 PFO (patent foramen ovale) 07/03/2013 0 12/26/2013 ASD (atrial septal defect) 07/03/2013 0 12/26/2013 Renal infarction 07/03/2013 12/12/2014 Other and unspecified hyperlipidemia 04/26/2009 12/01/2012 documented as of this encounter (statuses as of 01/20/2023) [facility] History of Past illness Narrative* Problem Noted Date Diagnosed Date Resolved Date HERNANDEZ inhibitor-aggravated angioedema 07/12/2013 12/12/2014 Paroxysmal atrial fibrillation 07/12/2013 12/26/2013 PFO (patent foramen ovale) 07/03/2013 0 12/26/2013 ASD (atrial septal defect) 07/03/2013 0 12/26/2013 Renal infarction 07/03/2013 12/12/2014 Other and unspecified hyperlipidemia 04/26/2009 12/01/2012 documented as of this encounter (statuses as of 02/04/2023) [facility] History of Past illness Narrative* Problem Noted Date Diagnosed Date Resolved Date HERNANDEZ inhibitor-aggravated angioedema 07/12/2013 12/12/2014 Paroxysmal atrial fibrillation 07/12/2013 12/26/2013 PFO (patent foramen ovale) 07/03/2013 0 12/26/2013 ASD (atrial septal defect) 07/03/2013 0 12/26/2013 Renal infarction 07/03/2013 12/12/2014 Other and unspecified hyperlipidemia 04/26/2009 12/01/2012 documented as of this encounter (statuses as of 02/09/2023) [facility] History of Past illness Narrative* Problem Noted Date Diagnosed Date Resolved Date HERNANDEZ inhibitor-aggravated angioedema 07/12/2013 12/12/2014 Paroxysmal atrial fibrillation 07/12/2013 12/26/2013 PFO (patent foramen ovale) 07/03/2013 0 12/26/2013 ASD (atrial septal defect) 07/03/2013 0 12/26/2013 Renal infarction 07/03/2013 12/12/2014 Other and unspecified hyperlipidemia 04/26/2009 12/01/2012 documented as of this encounter (statuses as of 02/10/2023) [facility] History of Past illness Narrative* Problem Noted Date Diagnosed Date Resolved Date HERNANDEZ inhibitor-aggravated angioedema 07/12/2013 12/12/2014 Paroxysmal atrial fibrillation 07/12/2013 12/26/2013 PFO (patent foramen ovale) 07/03/2013 0 12/26/2013 ASD (atrial septal defect) 07/03/2013 0 12/26/2013 Renal infarction 07/03/2013 12/12/2014 Other and unspecified hyperlipidemia 04/26/2009 12/01/2012 documented as of this encounter (statuses as of 02/11/2023) [facility] History of Past illness Narrative* Problem Noted Date Diagnosed Date Resolved Date HERNANDEZ inhibitor-aggravated angioedema 07/12/2013 12/12/2014 Paroxysmal atrial fibrillation 07/12/2013 12/26/2013 PFO (patent foramen ovale) 07/03/2013 0 12/26/2013 ASD (atrial septal defect) 07/03/2013 0 12/26/2013 Renal infarction 07/03/2013 12/12/2014 Other and unspecified hyperlipidemia 04/26/2009 12/01/2012 documented as of this encounter (statuses as of 02/24/2023) [facility] History of Past illness Narrative* Problem Noted Date Diagnosed Date Resolved Date HERNANDEZ inhibitor-aggravated angioedema 07/12/2013 12/12/2014 Paroxysmal atrial fibrillation 07/12/2013 12/26/2013 PFO (patent foramen ovale) 07/03/2013 0 12/26/2013 ASD (atrial septal defect) 07/03/2013 0 12/26/2013 Renal infarction 07/03/2013 12/12/2014 Other and unspecified hyperlipidemia 04/26/2009 12/01/2012 documented as of this encounter (statuses as of 04/21/2023) [facility] History of Past illness Narrative* Problem Noted Date Diagnosed Date Resolved Date HERNANDEZ inhibitor-aggravated angioedema 07/12/2013 12/12/2014 Paroxysmal atrial fibrillation 07/12/2013 12/26/2013 PFO (patent foramen ovale) 07/03/2013 0 12/26/2013 ASD (atrial septal defect) 07/03/2013 0 12/26/2013 Renal infarction 07/03/2013 12/12/2014 Other and unspecified hyperlipidemia 04/26/2009 12/01/2012 documented as of this encounter (statuses as of 09/02/2023) [facility] Diagnosis Essential hypertension, benign- Primary Encephalopathy due to COVID-19 virus [facility] Diagnosis Essential hypertension, benign [facility] Diagnosis Chronic gout without tophus, unspecified cause, unspecified site Seasonal allergic rhinitis due to other allergic trigger Hyperlipidemia with target LDL less than 100 Other and unspecified hyperlipidemia [facility]* Diagnosis Snores- Primary Other dyspnea and respiratory abnormality Hypersomnolence Hypersomnia, unspecified History of COVID-19 Confusion Unspecified psychosis Fatigue, unspecified type Spells of decreased attentiveness Other general symptoms Essential hypertension, benign [facility] Diagnosis YAEL (obstructive sleep apnea) Obstructive sleep apnea (adult) (pediatric) [facility]* Diagnosis Well adult exam- Primary Routine general medical examination at a health care facility Hyperlipidemia with target LDL less than 100 Other and unspecified hyperlipidemia Essential hypertension, benign Hyperlipidemia, mixed Mixed hyperlipidemia Chronic gout without tophus, unspecified cause, unspecified site YAEL (obstructive sleep apnea) Obstructive sleep apnea (adult) (pediatric) Screening for colon cancer Special screening for malignant neoplasms, colon Encounter for immunization Need for other specified prophylactic vaccination against single bacterial disease Encounter for screening for diabetes mellitus Screening for diabetes mellitus Screening for prostate cancer Special screening for malignant neoplasm of prostate Lipoma of neck Lipoma of other skin and subcutaneous tissue [facility] Diagnosis Essential hypertension, benign- Primary Hyperlipidemia with target LDL less than 100 Other and unspecified hyperlipidemia Hyperlipidemia, mixed Mixed hyperlipidemia Chronic gout without tophus, unspecified cause, unspecified site YAEL (obstructive sleep apnea) Obstructive sleep apnea (adult) (pediatric) Seasonal allergic rhinitis due to other allergic trigger Microscopic hematuria Alcohol abuse Alcohol abuse, unspecified Elevated PSA Elevated prostate specific antigen (PSA) Marital dysfunction Counseling for marital and partner problems, unspecified Encounter for screening for diabetes mellitus Screening for diabetes mellitus documented in this encounter [facility] Summary Purpose Family History No Family History Records FoundNo Family History Records Found Advance Directives No Advanced Directives Records FoundNo Advanced Directives Records Found Additional Source Comments (unrecognized sect ion and content) No Status Records FoundNo Status Records Found INFORMATION SOURCE (unrecogn ized section and content) DATE CREATED AUTHOR AUTHOR'S ORGANIZ ATION 09/03/[address] [facility] Source Comments (unrecognize d section and content) In the event this informatio n is protected by the Federal Confidentiality of Alcohol and Drug Abuse Patient Records regulations: The Federal rules restrict any use of the information to criminally investigate or prosecute any alcohol or drug abuse patient.[facility] the event this information is protected by the Federal Confidentiality of Alcohol and Drug Abuse Patient Records regulations: The Federal rules restrict any use of the information to criminally investigate or prosecute any alcohol or drug abuse patient.[facility] the event this information is protected by the Federal Confidentiality of Alcohol and Drug Abuse Patient Records regulations: The Federal rules restrict any use of the information to criminally investigate or prosecute any alcohol or drug abuse patient.[facility] the event this information is protected by the Federal Confidentiality of Alcohol and Drug Abuse Patient Records regulations: The Federal rules restrict any use of the information to criminally investigate or prosecute any alcohol or drug abuse patient.[facility] the event this information is protected by the Federal Confidentiality of Alcohol and Drug Abuse Patient Records regulations: The Federal rules restrict any use of the information to criminally investigate or prosecute any alcohol or drug abuse patient.[facility] the event this information is protected by the Federal Confidentiality of Alcohol and Drug Abuse Patient Records regulations: The Federal rules restrict any use of the information to criminally investigate or prosecute any alcohol or drug abuse patient.[facility] the event this information is protected by the Federal Confidentiality of Alcohol and Drug Abuse Patient Records regulations: The Federal rules restrict any use of the information to criminally investigate or prosecute any alcohol or drug abuse patient.[facility] the event this information is protected by the Federal Confidentiality of Alcohol and Drug Abuse Patient Records regulations: The Federal rules restrict any use of the information to criminally investigate or prosecute any alcohol or drug abuse patient.[facility] the event this information is protected by the Federal Confidentiality of Alcohol and Drug Abuse Patient Records regulations: The Federal rules restrict any use of the information to criminally investigate or prosecute any alcohol or drug abuse patient.[facility] the event this information is protected by the Federal Confidentiality of Alcohol and Drug Abuse Patient Records regulations: The Federal rules restrict any use of the information to criminally investigate or prosecute any alcohol or drug abuse patient.[facility] the event this information is protected by the Federal Confidentiality of Alcohol and Drug Abuse Patient Records regulations: The Federal rules restrict any use of the information to criminally investigate or prosecute any alcohol or drug abuse patient.[facility] the event this information is protected by the Federal Confidentiality of Alcohol and Drug Abuse Patient Records regulations: The Federal rules restrict any use of the information to criminally investigate or prosecute any alcohol or drug abuse patient.[facility] the event this information is protected by the Federal Confidentiality of Alcohol and Drug Abuse Patient Records regulations: The Federal rules restrict any use of the information to criminally investigate or prosecute any alcohol or drug abuse patient.[facility] the event this information is protected by the Federal Confidentiality of Alcohol and Drug Abuse Patient Records regulations: The Federal rules restrict any use of the information to criminally investigate or prosecute any alcohol or drug abuse patient.[facility] Reason for Visit (unrecogniz ed section and content) Reason Comments Hospital F/U Specialty Diagnoses / Procedures Referred By Louie shahid Referred To Contact Family Medicine / FAMILY MEDICINE Diagnoses Hospital discharge follow-up hospital follow up Procedures OFFICE/OUTPATIENT ESTABLISHED HIGH MDM 40-54 MIN 4C EST HOSP/[place] [address] [place] [id number] [place] [address] [place] [id number] Referral ID Status Reason Start Date Expiration Date V isits Requested Visits Authorized [id number] Authorized 06/18/2022 07/03/2022 99 99 Reason Comments Results Reason Onset Date Comments Refill Request 07/07/2022 Refill Request 09/01/2022 Reason Onset Date Comments Refill Request 09/06/2022 Reason Comments Follow Up Reason Comments Results Sleep study Reason Comments AutoPap RX Reason Comments [facility] requestiing rec ords Reason Comments Outside Pulmonology Reason Comments Physical Reason Comments F/U 6 months Care Teams (unrecognized sec tion and content) Corrosion Technician Relationship Specialty Start Date End Date Indra Fabian MD [address] [phone] PCP - General Family Medicine 04/02/21 Corrosion Technician Relationship Specialty Start Date End Date Indra Fabian MD [address] [place] [address] PCP - General Family Medicine 04/02/21 Corrosion Technician Relationship Specialty Start Date End Date Indra Fabian MD [address] [place] [address] PCP - General Family Medicine 04/02/21 Corrosion Technician Relationship Specialty Start Date End Date Indra Fabian MD [address] [place] [address] PCP - General Family Medicine 04/02/21 Corrosion Technician Relationship Specialty Start Date End Date Indra Fabian MD [address] [place] [address] PCP - General Family Medicine 04/02/21 Corrosion Technician Relationship Specialty Start Date End Date Indra Fabian MD [address] [place] [address] PCP - General Family Medicine 04/02/21 Corrosion Technician Relationship Specialty Start Date End Date Indra Fabian MD [address] [place] [address] PCP - General Family Medicine 04/02/21 Corrosion Technician Relationship Specialty Start Date End Date Indra Fabian MD [address] [place] [address] PCP - General Family Medicine 04/02/21 Corrosion Technician Relationship Specialty Start Date End Date Indra Fabian MD [address] [place] [address] PCP - General Family Medicine 04/02/21 Corrosion Technician Relationship Specialty Start Date End Date Indra Fabian MD [address] [place] [address] PCP - General Family Medicine 04/02/21 FOR RECORDS PERTAINING TO PATIENTS WHO ARE OR HAVE BEEN ENROLLED IN A CHEMICAL DEPENDENCY/SUBSTANCEABUSE PROGRAM, SOME INFORMATION MAY BE OMITTED. This clinical summary was aggregated from multiple sources. Caution should be exercised in using it in the provision of clinical care. This summary normalizes information from multiple sources, and as a consequence, information in this document may materially change the coding, format and clinical context of patient data. In addition, data may be omitted in some cases. CLINICAL DECISIONS SHOULD BE BASED ON THE PRIMARY CLINICAL RECORDS. [email or web address] provides no warranty or guarantee of the accuracy or completeness of information in this document.
[2023-09-11 00:31] LABS: Amphetamine Urine VISTA NEGATIVE (<1000 ng/mL); Barbiturate Urine VISTA NEGATIVE (< 200 ng/mL); Benzodiazepine Urine VISTA NEGATIVE (< 200 ng/mL); Cocaine Urine VISTA NEGATIVE (< 300 ng/mL); Ecstacy Urine VISTA NEGATIVE (< 500 ng/mL); Methadone Urine VISTA NEGATIVE (< 300 ng/mL); PCP Urine VISTA NEGATIVE (< 25 ng/mL); THC Urine VISTA NEGATIVE (< 50 ng/mL); Vista UDS pH Range 6
[2023-09-11 01:20] VITALS: RESP 14
== END 2023-09-11 01:20 | disposition home or self-care (01) ==
PROVIDERS: Emergency Provider Emergency Medicine; PCP Family Medicine; Visit Provider Emergency Medicine
DX: S01.01XA Laceration without foreign body of scalp, initial encounter (principal); I48.0 Paroxysmal atrial fibrillation; I10 Essential (primary) hypertension; E78.5 Hyperlipidemia, unspecified; Z87.891 Personal history of nicotine dependence; Z79.899 Other long term (current) drug therapy; Z79.82 Long term (current) use of aspirin; Z86.16 Personal history of COVID-19; W01.0XXA Fall on same level from slipping, tripping and stumbling without subsequent striking against object, initial encounter
CPT/HCPCS: 70450; 80307; 80320; 99282; G0480

== ENCOUNTER → 2023-09-23 | Outpatient (CLI) | payer OTHER, SELFPAY ==
[2023-09-23 08:33] LABS: Bacteria 0 SEEN /hpf (None Seen); Mucous, Urine 0 SEEN /hpf (<or=2+); Red Blood Cells-Urine 0 SEEN /hpf (0-5); Squamous Epithelial Cells - UA 0 SEEN /hpf (0-5); White Blood Cells 0 SEEN /hpf (0-5)
[2023-09-23 09:31] LABS: Color, Urine Straw (Yellow); Glucose, Dipstick Normal (Normal); Ketone-Dipstick Negative (Negative); Leukocyte Esterase-Dipstick Negative /ul (Negative); Nitrite-Dipstick Negative (Negative); Occult Blood-Urine Negative /ul (Negative); Protein-Dipstick Negative (Negative); Specific Gravity, Urine 1.005 (1.002-1.030); Urine Bilirubin Dipstick Negative (Negative); Urine Clarity Clear (Clear); Urine Urobilinogen Normal (Normal)
[2023-09-26 12:08] LABS: PSA, Free 1.32 ng/mL; PSA, Free % 17.6 % (.)
== END | disposition home or self-care (01) ==
LOC: LAB 08:30
PROVIDERS: PCP Family Medicine; Referring Provider Family Medicine; Visit Provider Family Medicine
DX: R97.20 Elevated prostate specific antigen [PSA] (principal)
CPT/HCPCS: 36415; 81001; 84153; 84154

== ENCOUNTER → 2023-11-10 | Outpatient (CLI) | payer OTHER, SELFPAY ==
--- NOTE | 2023-11-10 14:02 | CDU_ITS ---
Reason For Study: Dizziness Rt. Velocities/BP Lt. Velocities/BP Prox CCA 94.9/16.8 cm/sec. Prox CCA 127.1/19.4 cm/sec. Mid CCA 90.5/21.2 cm/sec. Mid CCA 96.1/17.5 cm/sec. Dist CCA 81.7/23.4 cm/sec. Dist CCA 87.9/16.7 cm/sec. Prox ICA 46.5/16.8 cm/sec. Prox ICA 54.5/18.2 cm/sec. Mid ICA 67.4/21.2 cm/sec. Mid ICA 75.1/24.5 cm/sec. Dist ICA 63.1/20.3 cm/sec. Dist ICA 83.8/20.3 cm/sec. Rt. ICA/CCA = 0.7. Lt. ICA/CCA = 0.9. Prox ECA 85.0/16.8 cm/sec. Prox ECA 75.4/16.0 cm/sec. Rt. Vert. 33.4/8.7 cm/sec. Lt. Vert. 43.5/13.8 cm/sec. Right Extracranial There is intimal thickening but no significant atherosclerotic plaque noted in the right common carotid artery. There is intimal thickening but no significant atherosclerotic plaque noted in the right internal carotid artery. There is intimal thickening but no significant atherosclerotic plaque noted in the right external carotid artery. Antegrade flow is noted in the right vertebral artery. Left Extracranial There is heterogeneous, smooth atherosclerotic plaque noted in the left common carotid artery. There is intimal thickening but no significant atherosclerotic plaque noted in the left internal carotid artery. There is intimal thickening but no significant atherosclerotic plaque noted in the left external carotid artery. Antegrade flow is noted in the left vertebral artery. Procedure Carotid Duplex [id number]. This is a Carotid Duplex examination using B-mode, color flow and specral Doppler. The exam was diagnostic. Exam performed in department. VL/Carotid Duplex Ultrasound Interpretation Summary Normal right extracranial internal carotid. Normal left extracranial internal carotid. Patent and antegrade vertebrals bilaterally. Ordering Physician: Isis Ochoa Referring Physician: Salazar Belcher Performed By: Barrera Arango RVT and Student
--- NOTE | 2023-11-10 14:02 | ECHOD_ITS ---
Reason For Study: Dizziness and Giddiness Procedure This was a 2D Doppler, Color Flow transthoracic echocardiogram. Exam performed in department. Left Ventricle Normal LV size. Mild concentric left ventricular hypertrophy. Left ventricular systolic function is normal. The estimated ejection fraction is 65 %. Normal diastology for age. Right Ventricle Normal RV size. Normal systolic function. Atria There is mild biatrial dilatation. No doppler evidence for ASD. Mitral Valve The mitral valve is structurally normal. No prolapse or stenosis seen. Trivial mitral valve insufficiency. Tricuspid Valve Normal tricuspid valve. Trivial tricuspid valve insufficiency. Unable to estimate RV systolic pressure due to insufficient tricuspid regurgitant envelope. Aortic Valve Trisinus/trileaflet aortic valve. Pulmonic Valve The pulmonic valve is not well visualized. Trivial pulmonic valve insufficiency. Great Vessels Normal aortic root. Pericardium/Pleural No pericardial effusion. MMode/2D Measurements & Calculations LVIDd: 4.4 cm IVSd: 1.2 cm Ao root diam: 3.5 cm LVIDs: 2.8 cm LVPWd: 1.2 cm LA dimension: 4.1 cm RVDd: 4.3 cm FS: 36.1 % LAV(MOD-bp): 73.9 ml LVAd ap4: 35.0 cm2 SV(MOD-sp4): 64.6 ml LAV(MOD-bp) Indexed: 36.3 ml/m2 LVLd ap4: 8.7 cm LAV(MOD-sp2): 78.4 ml EDV(MOD-sp4): 114.6 ml LAV(MOD-sp4): 62.7 ml EDV(sp4-el): 119.9 ml LVAs ap4: 21.0 cm2 LVLs ap4: 7.3 cm ESV(MOD-sp4): 50.0 ml ESV(sp4-el): 51.4 ml EF(MOD-sp4): 56.4 % EF(sp4-el): 57.1 % SV(sp4-el): 68.5 ml LA A4 area: 21.9 cm2 RA A4 area: 19.6 cm2 TAPSE: 2.5 cm Time Measurements MV dec time: 0.23 sec Doppler Measurements & Calculations MV E max wilian: 67.2 cm/sec Lat Peak E' Wilian: 16.5 cm/sec Med Peak E' Wilian: 9.8 cm/sec MV A max wilian: 74.0 cm/sec E/E' lat: 4.1 E/E' med: 6.9 MV E/A: 0.91 MV V2 max: 104.1 cm/sec MV P1/2t max wilian: 86.7 cm/sec Ao V2 max: 139.1 cm/sec MV max P.3 mmHg MV P1/2t: 70.1 msec Ao max P.7 mmHg MV V2 mean: 53.5 cm/sec MV dec slope: 362.1 cm/sec2 Ao V2 mean: 96.5 cm/sec MV mean P.4 mmHg Ao mean P.2 mmHg MV V2 VTI: 22.5 cm MVA(P1/2t): 3.1 cm2 Ao V2 VTI: 30.3 cm AV (velocity ratio): 0.76 LV V1 max: 114.2 cm/sec LV V1 max P.2 mmHg LV V1 mean P.8 mmHg LV V1 mean: 78.0 cm/sec LV V1 VTI: 22.9 cm ECHO/Echo Complete Interpretation Summary The estimated ejection fraction is 65 %. Mild concentric left ventricular hypertrophy. There is mild biatrial dilatation. Structurally normal valves Ordering Physician: Isis Ochoa Referring Physician: Isis Ochoa Performed By: Timoteo Atkinson RCS
== END | disposition home or self-care (01) ==
LOC: CVS 14:00
PROVIDERS: PCP Family Medicine; Referring Provider Physician Assistant; Visit Provider Physician Assistant
DX: R55 Syncope and collapse (principal); R42 Dizziness and giddiness
CPT/HCPCS: 93306; 93880

== ENCOUNTER → 2024-09-07 | Outpatient (CLI) | payer OTHER, SELFPAY ==
[2024-09-07 08:34] LABS: Cholesterol 199 mg/dL (<=200); High Density Lipoprotein 71 mg/dL; Low Density Lipoprotein Calc. 101 mg/dL; Triglycerides 133 mg/dL; Very Low Density Lipoprotein 27 mg/dL (5-40)
[2024-09-07 08:40] LABS: Anion Gap 12 (5-15); BUN 13 mg/dL (4-19); BUN/Creat Ratio 15.5 RATIO (10-20); Calcium,Total 9.1 mg/dL (7.6-11.0); Carbon Dioxide 26.4 mmol/L (21.0-32.0); Chloride 102 mmol/L (98-108); Creatinine, Serum 0.82 mg/dL (0.70-1.20); EST Glomerular Filtration Rate 106 (>60); Glucose 107 mg/dL (70-99); Potassium 4.1 mmol/L (3.3-5.1); Sodium Level 141 mmol/L (133-145)
[2024-09-08 08:08] LABS: PSA, Free % 15.6 % (.); V-Zoster IgG (Immunity) Reactive (Non Reactive)
== END | disposition home or self-care (01) ==
LOC: LAB 07:12
PROVIDERS: PCP Family Medicine; Referring Provider Family Medicine; Visit Provider Family Medicine
DX: I10 Essential (primary) hypertension (principal); Z13.9 Encounter for screening, unspecified; R97.20 Elevated prostate specific antigen [PSA]; E78.2 Mixed hyperlipidemia
CPT/HCPCS: 36415; 80048; 80061; 84153; 84154; 86787

== ENCOUNTER → 2024-09-27 | Outpatient (CLI) | payer OTHER, SELFPAY ==
[2024-09-27 12:04] LABS: PSA,Total- Diagnostic 9.77 ng/mL (0.00-4.00)
== END | disposition home or self-care (01) ==
LOC: LAB 07:10
PROVIDERS: PCP Family Medicine; Referring Provider Family Medicine; Visit Provider Family Medicine
DX: R97.20 Elevated prostate specific antigen [PSA] (principal)
CPT/HCPCS: 36415; 84153

== ENCOUNTER → 2025-03-11 | Outpatient (CLI) | payer OTHER, SELFPAY ==
[2025-03-11 13:53] LABS: Hematocrit 29.1 % (40-54); Hemoglobin 9.7 g/dL (13.0-16.5)
== END | disposition home or self-care (01) ==
LOC: LAB 13:25
PROVIDERS: PCP Family Medicine; Referring Provider Family Medicine; Visit Provider Family Medicine
DX: D64.9 Anemia, unspecified (principal)
CPT/HCPCS: 36415; 85014; 85018

== ENCOUNTER → 2025-03-26 | Outpatient (CLI) | payer OTHER, SELFPAY ==
[2025-03-26 10:55] LABS: Hematocrit 31.3 % (40-54); Hemoglobin 9.9 g/dL (13.0-16.5); Immature Granulocytes Count 0.040 X10^3/uL (0.0-0.0); Mean Corp Hgb Conc 31.6 g/dL (32-36); Mean Corpuscular Volume 91.3 fL (80-94); Mean Platelet Vol. 10.2 fl (6.2-12.0); NRBC Flagged by Analyzer 0 % (0-5); Platelet Count 347 K/mm3 (150-450); RBC Distribution Width CV 13.7 % (11.6-14.6); RBC Distribution Width SD 45.9 fl (35.1-43.9); Red Blood Count 3.43 M/mm3 (4.6-6.2); White Blood Count 5.8 K/mm3 (4.4-11.0)
== END | disposition home or self-care (01) ==
LOC: LAB 10:23
PROVIDERS: PCP Family Medicine; Referring Provider Family Medicine; Visit Provider Family Medicine
DX: D64.89 Other specified anemias (principal)
CPT/HCPCS: 36415; 85025

== ENCOUNTER → 2025-03-29 | Outpatient (CLI) | payer OTHER, SELFPAY ==
[2025-03-29 13:21] LABS: Ferritin 67 ng/mL (37-417); Iron 46 ug/dL (65-175); Iron Binding Capacity,Total 406 ug/dL (250-450); Iron Binding Capacity,Unsat 360 ug/dL (228-428); Vitamin B12 487 pg/mL (180-914)
[2025-03-29 13:27] LABS: FOLATES,SERUM (FOLIC ACID) 9.91 ng/mL (4.60-34.80)
== END | disposition home or self-care (01) ==
LOC: LAB 11:17
PROVIDERS: PCP Family Medicine; Referring Provider Family Medicine; Visit Provider Family Medicine
DX: D64.9 Anemia, unspecified (principal)
CPT/HCPCS: 36415; 82607; 82728; 82746; 83540; 83550

== ENCOUNTER 2025-04-10 13:14 | Outpatient (RCR) | payer OTHER, SELFPAY ==
[2025-04-10 14:29] LABS: PSA,Total- Diagnostic < 0.02 ng/mL (0.00-4.00)
== END 2025-04-10 18:00 | disposition home or self-care (01) ==
LOC: LAB 13:14
PROVIDERS: PCP Family Medicine; Referring Provider Urology; Visit Provider Urology
DX: C61 Malignant neoplasm of prostate (principal)
CPT/HCPCS: 36415; 84153